=== PATIENT | female | born 1990 | race Caucasian/White ===

== ENCOUNTER → 2022-03-25 13:09 | Outpatient (BNVA) | payer MEDICARE, MEDICAID, SELFPAY | PROVIDERS: Visit Provider Physician Assistant | DX: Z11.0 Encounter for screening for intestinal infectious diseases (principal); E66.01 Morbid (severe) obesity due to excess calories; F17.210 Nicotine dependence, cigarettes, uncomplicated; Z68.43 Body mass index [BMI] 50.0-59.9, adult | CPT/HCPCS: 83013; 99202; 99211 ==

== ENCOUNTER 2022-03-25 17:55 | Outpatient (REF) | payer MEDICARE, MEDICAID, SELFPAY ==
[2022-03-26 15:23] LABS: H Pylori Breath Test Negative (Negative)
== END 2022-03-25 17:56 | disposition home or self-care (01) ==
LOC: HO.LNP 17:55
PROVIDERS: Visit Provider Physician Assistant
DX: Z13.89 Encounter for screening for other disorder (principal)
CPT/HCPCS: 83013

== ENCOUNTER 2022-04-04 14:32 | Outpatient (REF) | payer MEDICARE, MEDICAID, SELFPAY ==
--- NOTE | ~2022-04-04 | XR_ITS ---
EXAMINATION: XR CHEST CLINICAL INFORMATION: Bariatric service evaluation. E66.01. COMPARISON: None TECHNIQUE: 2 views of the chest were obtained. FINDINGS: The lungs are clear. No hyperinflation. The costophrenic sulci are well-defined. The heart is normal in size. The vascularity is normal. The hilar and mediastinal contours are unremarkable. There are mild degenerative changes thoracic spine. No acute bony abnormality. XR/XR chest 2V IMPRESSION: Unremarkable examination.
--- NOTE | 2022-04-04 14:46 | ECG_ITS ---
Test Reason : e66.1 Blood Pressure : / mmHG Vent. Rate : 082 BPM Atrial Rate : 082 BPM P-R Int : 144 ms QRS Dur : 088 ms QT Int : 368 ms P-R-T Axes : 046 051 025 degrees QTc Int : 429 ms Normal sinus rhythm Normal ECG No previous ECGs available Referred By: Ashly Rincon Electronically Signed By:PARAM PRATT
[2022-04-04 15:06] LABS: MANUAL DIFF FLAG NO
[2022-04-04 15:23] LABS: Basophils Percent Auto 0.4 % (0-2); Eosinophils Absolute Auto 0.1 X10*3/uL (0.0-0.4); Eosinophils Percent Auto 1.5 % (0-4); Hemoglobin 13.8 g/dl (12.0-16.0); Imm Gran Abs Auto 0.05 X10*3/uL (0.00-0.03); Imm Gran Pct Auto 0.5 % (0.0-0.4); Lymphocytes Absolute Auto 1.9 X10*3/uL (1.2-4.9); Lymphocytes Percent Auto 21.1 % (20-40); Mean Corpuscular HGB Conc 32.9 g/dl (31.0-35.0); Mean Corpuscular Hemoglobin 27.9 pg (27.0-33.0); Mean Platelet Volume 9.4 fL (9.4-12.3); Monocytes Absolute Auto 0.8 X10*3/uL (0.1-1.2); Monocytes Percent Auto 8.3 % (2-11); Neutrophils Absolute Auto 6.2 x10*3/uL (2.0-8.3); Neutrophils Percent Auto 68.2 % (45-73); Platelet Count 350 X10*3/uL (160-400); Red Blood Count 4.94 X10*6/uL (4.20-5.50); Red Cell Distribution Width 14.4 % (11.0-16.0); White Blood Count 9.1 X10*3/uL (4.8-10.8)
[2022-04-04 15:37] LABS: Estimated Average Glucose 108 mg/dL; Hemoglobin A1c % 5.4 %
[2022-04-04 16:16] LABS: Alanine Aminotransferase 35 U/L (0-31); Albumin Level 4.5 g/dL (3.5-5.0); Alkaline Phosphatase 111 U/L (39-117); Anion Gap 12 (12-20); Aspartate Amino Transferase 28 U/L (5-31); Bilirubin Total 0.4 mg/dL (0.0-1.0); Blood Urea Nitrogen 11 mg/dL (9-16); C Reactive Protein 0.58 mg/dL (< or = 0.50); Calcium 9.7 mg/dL (8.4-10.2); Carbon Dioxide 25 mmol/L (22-29); Chloride 106 mmol/L (96-108); Cholesterol 125 mg/dL; Estimated Glomerular Filt Rate > 60; Ferritin 31 ng/mL (10-122); Glucose Random 89 mg/dL (60-115); HDL Cholesterol 34 mg/dL; Insulin 21 uU/mL (2-29); Iron 27 mcg/dL (30-160); LDL Cholesterol Calculated 75 mg/dl; Percent Iron Saturation 8 % (15-50); Potassium 4.5 mmol/L (3.3-5.1); Sodium 138 mmol/L (135-145); TSH reflex Free T4 1.18 uIU/mL (0.32-4.0); Total Iron Binding Capacity 334 mcg/dL (228-428); Total Protein 6.8 g/dL (6.5-8.0); Triglycerides 83 mg/dL; Unsaturated Iron Binding 307 ug/dL; Vitamin D 25-OH Total 24.8 ng/mL (>30)
[2022-04-04 16:29] LABS: Folate 12.4 ng/mL (> or = 4.0); Vitamin B12 729 pg/mL (200-900)
[2022-04-08 11:54] LABS: Calcium (PTHI) 9.7 mg/dL (8.6-10.2); PTHI 53 pg/mL (16-77)
[2022-04-09 17:53] LABS: Zinc 75 mcg/dL (60-130)
[2022-04-10 14:24] LABS: Vitamin A 41 mcg/dL (38-98)
[2022-04-13 10:03] LABS: Vitamin B1 10 nmol/L (8-30)
== END 2022-04-04 14:33 | disposition home or self-care (01) ==
LOC: HO.LAB 14:32
PROVIDERS: Visit Provider Physician Assistant
DX: Z01.818 Encounter for other preprocedural examination (principal); E66.01 Morbid (severe) obesity due to excess calories
CPT/HCPCS: 36415; 71046; 80053; 80061; 82306; 82607; 82728; 82746; 83036; 83525; 83540; 83970; 84425; 84443; 84590; 84630; 85025; 86140; 93005

== ENCOUNTER → 2022-04-18 13:00 | Outpatient (BNVA) | payer MEDICARE, MEDICAID, SELFPAY | PROVIDERS: Visit Provider Physician Assistant | DX: E66.01 Morbid (severe) obesity due to excess calories (principal); Z68.43 Body mass index [BMI] 50.0-59.9, adult | CPT/HCPCS: Q3014 ==

== ENCOUNTER → 2022-04-19 13:44 | Outpatient (BNVA) | payer MEDICARE, MEDICAID, SELFPAY | PROVIDERS: Visit Provider Dietitian, Registered | DX: E66.01 Morbid (severe) obesity due to excess calories (principal) | CPT/HCPCS: 97802 ==

== ENCOUNTER → 2022-04-23 13:00 | Outpatient (BNVA) | payer MEDICARE, MEDICAID, SELFPAY | PROVIDERS: Visit Provider Counselor Mental Health | DX: F50.81 Binge eating disorder (principal); E66.01 Morbid (severe) obesity due to excess calories | CPT/HCPCS: 90791 ==

== ENCOUNTER → 2022-05-09 13:29 | Outpatient (BNVA) | payer MEDICARE, MEDICAID, SELFPAY | PROVIDERS: Visit Provider Dietitian, Registered | DX: E66.01 Morbid (severe) obesity due to excess calories (principal); Z68.43 Body mass index [BMI] 50.0-59.9, adult | CPT/HCPCS: 97803 ==

== ENCOUNTER → 2022-05-10 12:30 | Outpatient (BNVA) | payer MEDICARE, MEDICAID, SELFPAY | PROVIDERS: Visit Provider Physician Assistant | DX: E66.01 Morbid (severe) obesity due to excess calories (principal); F17.210 Nicotine dependence, cigarettes, uncomplicated; Z68.43 Body mass index [BMI] 50.0-59.9, adult | CPT/HCPCS: Q3014 ==

== ENCOUNTER 2022-05-14 08:26 | Outpatient (REF) | payer MEDICARE, MEDICAID, SELFPAY ==
--- NOTE | ~2022-05-14 | US_ITS ---
EXAMINATION: US COMPLETE ABDOMEN WITH LIVER ELASTOGRAPHY CLINICAL INFORMATION: Obesity. COMPARISON: None. TECHNIQUE: Real-time imaging of the abdominal viscera. Noninvasive ultrasound liver fibrosis assessment is performed using Margaret ElastPQ point quantification shear wave elastography (2D-SWE) with a C5-2 MHz transducer. Multiple elastography samples are obtained. FINDINGS: PANCREAS: Normal. The visualized pancreatic head and body are normal in appearance. The remainder of the pancreas is obscured from visualization by the overlying bowel gas. ABDOMINAL AORTA: The proximal, middle, and distal aortic segments are normal in caliber. INFERIOR VENA CAVA: Visualized portions are normal. LIVER: Normal. The liver demonstrates normal size, contour and mildly diminished echogenicity, with a 4.8 x 3.3 x 3.1 cm focus of pericholecystic sparing. No focal lesion or intrahepatic biliary duct dilatation. The right lobe measures 14.2 cm in length. The left lobe measures 12.0 cm in length. Portal flow is towards the liver (hepatopetal). Shear wave liver elastography median stiffness is 1.12 m/s (reference: normal median stiffness is 1.3 m/s or less). IQR/median stiffness to assess sampling precision is 0.13 (reference: good quality data set is IQR/median stiffness of 0.15 or less). GALLBLADDER: Normal. The gallbladder is physiologically distended without evidence of stones, sludge, polyps, wall thickening or pericholecystic fluid. COMMON BILE DUCT: Normal in caliber measuring 0.4 cm in diameter. RIGHT KIDNEY: At the upper pole, a 1.0 cm in maximal diameter anechoic, simple cyst is seen.. No hydronephrosis. No renal calculi or focal parenchymal lesions. The kidney measures 12.4 cm in maximum dimension. LEFT KIDNEY: Normal. No hydronephrosis. No renal calculi or focal parenchymal lesions. The kidney measures 13.1 cm in maximum dimension. SPLEEN: Normal. The spleen measures 11.8 cm in maximum dimension. FREE FLUID: None. US/US abdomen comp w elastography IMPRESSION: 1. There is mild generalized increase in hepatic echotexture, consistent with fatty infiltration or hepatocellular disease. Please correlate clinically. Characteristic pericholecystic sparing favors fatty infiltration. No focal hepatic mass or intrahepatic biliary dilatation is seen. 2. Liver elastography: Measurements are consistent with a high probability of normal liver stiffness. 3. A 1.0 cm benign, simple right renal cyst is seen, for which no imaging follow-up is recommended. REFERENCE: Society of Radiologists in Ultrasound Liver Stiffness Thresholds (2020): LIVER STIFFNESS THRESHOLDS: *Liver Stiffness equal or less than 1.3 m/s: High probability of being normal. *Liver Stiffness less than 1.7 m/s: In the absence of other known clinical signs, rules out compensated advanced chronic liver disease. *Liver Stiffness 1.7-2.1 m/s: Suggestive of compensated advanced chronic liver disease but need further test for confirmation. *Liver Stiffness over 2.1 m/s: Rules in compensated advanced chronic liver disease. *Liver Stiffness over 2.4 m/s: Suggestive of clinically significant portal hypertension. QUALITY OF DATA SET: *IQR/Median value equal or less than 0.15 implies a quality data set. *IQR/Median value over 0.15 implies a poor quality data set. SIGNIFICANT CHANGE FROM PRIOR EXAM: Significant change if liver stiffness measurement is 10% or greater from prior exam. OTHER CONSIDERATIONS: The stage of liver fibrosis may be overestimated in the setting of acute hepatitis, liver inflammation, elevated liver function tests, hepatic vascular congestion, obstructive cholestasis, non-fasting state, and infiltrative diseases such as amyloidosis and lymphoma. In some patients with NAFLD, the liver stiffness thresholds for compensated advanced chronic liver disease may be lower. In causes other than viral hepatitis and NAFLD, liver stiffness thresholds are not well established.
--- NOTE | ~2022-05-14 | FL_ITS ---
EXAMINATION: XR FLUOROSCOPY UPPER GI WITH AIR CLINICAL INFORMATION: Morbid obesity due to excess calories. COMPARISON: None TECHNIQUE: Fluoroscopic assessment of the upper GI tract was performed in various upright and supine/prone obliquities utilizing thin and thick high density barium contrast material and effervescent granules. FINDINGS: The esophagus was normal in course, caliber, and contour. There was normal distensibility with no fixed segment of narrowing. No focal mucosal abnormality was identified. No significant esophageal dysmotility was observed. Contrast passed freely across the gastroesophageal junction into the stomach. No significant hiatal hernia. There was normal distensibility of the stomach with no focal abnormality identified. There was prompt gastric emptying into the duodenum which demonstrated a normal appearance. Mild to moderate gastroesophageal reflux was observed. FLUOROSCOPY TIME: 1.3 minutes DOSE AREA PRODUCT: 29.421 Gy-cm2 (nguyen-centimeter squared) FL/FL upper GI w air IMPRESSION: Mild to moderate gastroesophageal reflux noted. Otherwise unremarkable upper GI examination.
== END 2022-05-14 08:27 | disposition home or self-care (01) ==
LOC: HO.US 08:26
PROVIDERS: Visit Provider Physician Assistant
DX: Z01.818 Encounter for other preprocedural examination (principal); E66.01 Morbid (severe) obesity due to excess calories
CPT/HCPCS: 74246; 76705; 76981

== ENCOUNTER → 2022-05-23 13:39 | Outpatient (BNVA) | payer MEDICARE, MEDICAID, SELFPAY | PROVIDERS: Visit Provider Physician Assistant | DX: E66.01 Morbid (severe) obesity due to excess calories (principal); F17.210 Nicotine dependence, cigarettes, uncomplicated; Z68.43 Body mass index [BMI] 50.0-59.9, adult | CPT/HCPCS: Q3014 ==

== ENCOUNTER → 2022-06-07 13:07 | Outpatient (BNVA) | payer MEDICARE, MEDICAID, SELFPAY | PROVIDERS: Visit Provider Dietitian, Registered | DX: E66.01 Morbid (severe) obesity due to excess calories (principal); Z71.3 Dietary counseling and surveillance | CPT/HCPCS: 97803 ==

== ENCOUNTER → 2022-06-21 12:29 | Outpatient (BNVA) | payer MEDICARE, MEDICAID, SELFPAY | PROVIDERS: Visit Provider Physician Assistant | DX: E66.01 Morbid (severe) obesity due to excess calories (principal); F17.210 Nicotine dependence, cigarettes, uncomplicated; Z68.42 Body mass index [BMI] 45.0-49.9, adult | CPT/HCPCS: Q3014 ==

== ENCOUNTER → 2022-07-01 13:30 | Outpatient (BNVA) | payer MEDICARE, MEDICAID, SELFPAY | PROVIDERS: Visit Provider Surgery | DX: Z01.818 Encounter for other preprocedural examination (principal); E66.01 Morbid (severe) obesity due to excess calories; F50.81 Binge eating disorder; F17.210 Nicotine dependence, cigarettes, uncomplicated | CPT/HCPCS: 99212 ==

== ENCOUNTER → 2022-07-05 13:03 | Outpatient (BNVA) | payer MEDICARE, MEDICAID, SELFPAY | PROVIDERS: Visit Provider Surgery ==

== ENCOUNTER → 2022-07-10 09:30 | Outpatient (BNVA) | payer MEDICARE, MEDICAID, SELFPAY | PROVIDERS: Visit Provider Physician Assistant | DX: E66.01 Morbid (severe) obesity due to excess calories (principal); F50.81 Binge eating disorder; Z68.42 Body mass index [BMI] 45.0-49.9, adult | CPT/HCPCS: Q3014 ==

== ENCOUNTER → 2022-07-16 14:59 | Outpatient (BNVA) | payer MEDICARE, MEDICAID, SELFPAY | PROVIDERS: Visit Provider Counselor Mental Health ==

== ENCOUNTER → 2022-07-18 13:42 | Outpatient (BNVA) | payer MEDICARE, MEDICAID, SELFPAY | PROVIDERS: Visit Provider Physician Assistant | DX: E66.01 Morbid (severe) obesity due to excess calories (principal); F50.81 Binge eating disorder; Z68.42 Body mass index [BMI] 45.0-49.9, adult; F17.210 Nicotine dependence, cigarettes, uncomplicated | CPT/HCPCS: 99212 ==

== ENCOUNTER 2022-07-24 08:54 | Inpatient (IN) | payer MEDICARE, MEDICAID, SELFPAY ==
[2022-07-05 13:04] LABS: MANUAL DIFF FLAG NO
[2022-07-05 14:03] LABS: Basophils Percent Auto 0.4 % (0-2); Eosinophils Absolute Auto 0.2 X10*3/uL (0.0-0.4); Eosinophils Percent Auto 2.3 % (0-4); Hematocrit 40.9 % (37.0-47.0); Hemoglobin 13.4 g/dl (12.0-16.0); Imm Gran Abs Auto 0.03 X10*3/uL (0.00-0.03); Imm Gran Pct Auto 0.4 % (0.0-0.4); Lymphocytes Absolute Auto 1.6 X10*3/uL (1.2-4.9); Lymphocytes Percent Auto 18.9 % (20-40); Mean Corpuscular HGB Conc 32.8 g/dl (31.0-35.0); Mean Corpuscular Volume 82.5 fL (80.0-98.0); Mean Platelet Volume 9.6 fL (9.4-12.3); Monocytes Absolute Auto 0.6 X10*3/uL (0.1-1.2); Monocytes Percent Auto 7.6 % (2-11); Neutrophils Absolute Auto 5.8 x10*3/uL (2.0-8.3); Neutrophils Percent Auto 70.4 % (45-73); Platelet Count 323 X10*3/uL (160-400); Red Blood Count 4.96 X10*6/uL (4.20-5.50); White Blood Count 8.2 X10*3/uL (4.8-10.8)
[2022-07-05 14:11] LABS: INTERNATIONAL NORM RATIO 1.1 (0.9-1.1); Prothrombin Time 12.6 SEC (10.0-13.1)
[2022-07-05 14:13] LABS: Partial Thromboplastin Time 33.9 SEC (26.0-36.4)
[2022-07-05 14:15] LABS: Estimated Average Glucose 108 mg/dL; Hemoglobin A1c % 5.4 %
[2022-07-05 14:20] LABS: Alanine Aminotransferase 26 U/L (0-31); Albumin Level 4.3 g/dL (3.5-5.0); Alkaline Phosphatase 118 U/L (39-117); Anion Gap 15 (12-20); Aspartate Amino Transferase 21 U/L (5-31); Bilirubin Total 0.8 mg/dL (0.0-1.0); Blood Urea Nitrogen 11 mg/dL (9-16); C Reactive Protein 1.53 mg/dL (< or = 0.50); Calcium 9.4 mg/dL (8.4-10.2); Carbon Dioxide 23 mmol/L (22-29); Chloride 106 mmol/L (96-108); Cholesterol 122 mg/dL; Estimated Glomerular Filt Rate > 60; Glucose Random 84 mg/dL (60-115); HDL Cholesterol 32 mg/dL; Iron 46 mcg/dL (30-160); LDL Cholesterol Calculated 76 mg/dl; Percent Iron Saturation 15 % (15-50); Potassium 4.5 mmol/L (3.3-5.1); Sodium 139 mmol/L (135-145); Total Iron Binding Capacity 299 mcg/dL (228-428); Total Protein 6.7 g/dL (6.5-8.0); Triglycerides 74 mg/dL; Unsaturated Iron Binding 253 ug/dL
[2022-07-05 14:43] LABS: Ferritin 66 ng/mL (10-122); TSH reflex Free T4 1.02 uIU/mL (0.32-4.0); Vitamin B12 689 pg/mL (200-900); Vitamin D 25-OH Total 32.6 ng/mL (>30)
[2022-07-08 14:04] LABS: Calcium (PTHI) 9.7 mg/dL (8.6-10.2); PTHI 42 pg/mL (16-77)
[2022-07-09 17:34] LABS: Zinc 78 mcg/dL (60-130)
[2022-07-11 06:04] LABS: Vitamin A 33 mcg/dL (38-98)
[2022-07-11 15:34] LABS: Vitamin B1 10 nmol/L (8-30)
[2022-07-12 23:00] LABS: Cotinine, U <2 ng/mL; Nicotine, U <2 ng/mL
[2022-07-15 14:31] VITALS: BMI 45.8
[2022-07-23 13:49] LABS: COVID-19 Test Negative (Negative); IDNOW Serial# 08D9AD1C
[2022-07-24] VITALS (12 sets, daily range): BP systolic 109–156; BP diastolic 50–92; PULSE 65–82; RESP 16–20; TEMP 36.1–37.1; O2SAT 96–100
[2022-07-24] MEDS: Scopolamine 1.5 MG PATCH.TD.3 TRANSDERMA (09:14)
[2022-07-24 09:16] LABS: UPreg QC Valid YES; Urine Pregnancy NEGATIVE (NEGATIVE)
[2022-07-24] MEDS: Lactated Ringers 1,000 ML 150 ML IVCONT (09:36)
--- NOTE | 2022-07-24 09:46 | HO.ANESPROP2 ---
HPI - Anesthesia Eval Consult details Narrative: 32 yo female patient for EGD, Laparoscopic sleeve gastrectomy, possible diaphragmatic hernia repair, possible ventral hernia repair, possible open PMFSH Active Problems Active Problems: All Active Problems (Updated 07/24/22 @09:44 by Jo Solorzano MD ) Morbid obesity BMI 45.9 Pre-op evaluation (Acute) Cigarette smoker - quit 06/19/2022 Binge-eating disorder, in partial remission, mild (Acute) Denies GORDY Past Medical History Medical History Binge-eating disorder, in partial remission, mild Cigarette smoker Depression Family history of anesthesia complication Fuchs' corneal dystrophy of both eyes Family History Family History Mother No problems noted. Father Heart failure Hypertension High cholesterol Heart attack Brother No problems noted. Family history of problems with anesthesia: No Surgical History Surgical History Hx of cornea transplant History of Problems with Anesthesia: No Social History Social History (Updated 07/24/22 @ 11:18 by Jo Solorzano MD) Household Members Other:: father Are you a primary palliative care specialist to a significant other at home: No Do you presently have visiting nurse or other home services: No Alcohol intake: current Alcohol intake frequency: holidays/special occasions only Patient Tobacco Use Status: Former Tobacco user Quit Date: 06/19/22 Tobacco use type: Cigarette Cigarette Packs Per Day: 0.5 Years Smoked: 20 Substance Use Type: Marijuana Meds Allergies Allergy/AdvReac Type Severity Reaction Status Date / Time No Known Allergies Allergy Mild NONE Verified 07/18/22 13:45 Active Medications: Current Medications Lactated Ringer's (Lr) 1,000 mls @ 150 mls/hr IVCONT .[id number] GILDARDO Last Admin: 07/24/22 09:36 Dose: 150 mls/hr Home Medications Medication Instructions Recorded Confirmed Last Taken Type spironolactone 25 mg tablet 5 mg PO DAILY 03/08/22 06/21/22 Unknown History Exam Exam Date and Time: July 24, 2022 0946 Height,Weight and Vital Signs: Height 5 ft 3 in Weight 117.48 kg Last Vital Signs Temp 96.9 F 07/24/22 09:11 Pulse 74 07/24/22 09:11 Resp 16 07/24/22 09:11 BP 153/80 H 07/24/22 09:11 Pulse Ox 98 07/24/22 09:11 O2 Del Method Room Air 07/24/22 09:11 Pertinent Lab Results Pertinent Lab Results: Laboratory Tests 07/05/22 07/05/22 07/05/22 12:48 13:02 13:02 WBC 8.2 RBC 4.96 Hgb 13.4 Hct 40.9 MCV 82.5 MCH 27.0 MCHC 32.8 RDW 14.0 Plt Count 323 MPV 9.6 Immature Gran % (Auto) 0.4 Neut % (Auto) 70.4 Lymph % (Auto) 18.9 L [place] % (Auto) 7.6 Eos % (Auto) 2.3 Baso % (Auto) 0.4 Lymph # (Auto) 1.6 [place] # (Auto) 0.6 Eos # (Auto) 0.2 Baso # (Auto) 0.0 Abs Immat Gran (auto) 0.03 Absolute Neuts (auto) 5.8 Absolute Nucleated RBC 0.000 Nucleated RBC % (auto) 0.0 PT 12.6 INR 1.1 APTT 33.9 Sodium Potassium Chloride Carbon Dioxide Anion Gap BUN Creatinine Estim Creat Clear Calc Estimated GFR Random Glucose Estimat Average Glucose Hemoglobin A1c % Calcium Iron TIBC % Saturation Unsat Iron Binding Ferritin Total Bilirubin AST ALT Alkaline Phosphatase C-Reactive Protein Total Protein Albumin Triglycerides Cholesterol LDL Cholesterol, Calc HDL Cholesterol Vitamin A Vitamin B1 Vitamin B12 25-OH Vitamin D Total TSH PTH Intact Calcium (PTH Intact) Urine Cotinine Urine Test Urine Nicotine Zinc COVID-19 (CRUZ) COVID-19 Clin Com Blood Type O Negative Antibody Screen Cancelled 07/05/22 07/05/22 07/05/22 13:02 13:02 13:02 WBC RBC Hgb Hct MCV MCH MCHC RDW Plt Count MPV Immature Gran % (Auto) Neut % (Auto) Lymph % (Auto) [place] % (Auto) Eos % (Auto) Baso % (Auto) Lymph # (Auto) [place] # (Auto) Eos # (Auto) Baso # (Auto) Abs Immat Gran (auto) Absolute Neuts (auto) Absolute Nucleated RBC Nucleated RBC % (auto) PT INR APTT Sodium 139 Potassium 4.5 Chloride 106 Carbon Dioxide 23 Anion Gap 15 BUN 11 Creatinine 0.68 Estim Creat Clear Calc TNP Estimated GFR > 60 Random Glucose 84 Estimat Average Glucose 108 Hemoglobin A1c % 5.4 Calcium 9.4 Iron 46 TIBC 299 % Saturation 15 Unsat Iron Binding 253 Ferritin 66 Total Bilirubin 0.8 AST 21 ALT 26 Alkaline Phosphatase 118 H C-Reactive Protein 1.53 H Total Protein 6.7 Albumin 4.3 Triglycerides 74 Cholesterol 122 LDL Cholesterol, Calc 76 HDL Cholesterol 32 Vitamin A 33 L Vitamin B1 10 Vitamin B12 689 25-OH Vitamin D Total 32.6 TSH 1.02 PTH Intact Calcium (PTH Intact) Urine Cotinine Urine Test Urine Nicotine Zinc COVID-19 (CRUZ) [employer] Blood Type Antibody Screen 07/05/22 07/05/22 07/05/22 13:02 13:02 15:28 WBC RBC Hgb Hct MCV MCH MCHC RDW Plt Count MPV Immature Gran % (Auto) Neut % (Auto) Lymph % (Auto) [place] % (Auto) Eos % (Auto) Baso % (Auto) Lymph # (Auto) [place] # (Auto) Eos # (Auto) Baso # (Auto) Abs Immat Gran (auto) Absolute Neuts (auto) Absolute Nucleated RBC Nucleated RBC % (auto) PT INR APTT Sodium Potassium Chloride Carbon Dioxide Anion Gap BUN Creatinine Estim Creat Clear Calc Estimated GFR Random Glucose Estimat Average Glucose Hemoglobin A1c % Calcium Iron TIBC % Saturation Unsat Iron Binding Ferritin Total Bilirubin AST ALT Alkaline Phosphatase C-Reactive Protein Total Protein Albumin Triglycerides Cholesterol LDL Cholesterol, Calc HDL Cholesterol Vitamin A Vitamin B1 Vitamin B12 25-OH Vitamin D Total TSH PTH Intact 42 Calcium (PTH Intact) 9.7 Urine Cotinine <2 Urine Test Urine Nicotine <2 Zinc 78 COVID-19 (CRUZ) COVIDAorTx Blood Type Antibody Screen 07/23/22 07/24/22 13:14 08:55 WBC RBC Hgb Hct MCV MCH MCHC RDW Plt Count MPV Immature Gran % (Auto) Neut % (Auto) Lymph % (Auto) [place] % (Auto) Eos % (Auto) Baso % (Auto) Lymph # (Auto) [place] # (Auto) Eos # (Auto) Baso # (Auto) Abs Immat Gran (auto) Absolute Neuts (auto) Absolute Nucleated RBC Nucleated RBC % (auto) PT INR APTT Sodium Potassium Chloride Carbon Dioxide Anion Gap BUN Creatinine Estim Creat Clear Calc Estimated GFR Random Glucose Estimat Average Glucose Hemoglobin A1c % Calcium Iron TIBC % Saturation Unsat Iron Binding Ferritin Total Bilirubin AST ALT Alkaline Phosphatase C-Reactive Protein Total Protein Albumin Triglycerides Cholesterol LDL Cholesterol, Calc HDL Cholesterol Vitamin A Vitamin B1 Vitamin B12 25-OH Vitamin D Total TSH PTH Intact Calcium (PTH Intact) Urine Cotinine Urine Test NEGATIVE Urine Nicotine Zinc COVID-19 (CRUZ) Negative COVID-19 Clin Com See Note Blood Type Antibody Screen Airway Mallampati Class: III TM Dist: >3cm Neck ROM: Full Loose/Missing/Broken Teeth: No (Denies broken, loose, missing teeth) Heart: RRR Lungs: CTAB Assessment and Plan Assessment Anesthesia Assessment: Anesthesia Plan Discussed and Chart Reviewed Final Anesthetic Review Family History of Problems with Anesthesia: No History of Problems with Anesthesia: No NPO: Yes ASA Class: III Final Preanesthetic Review: No Changes in Pt Med Stat, Meds/Allgs Chart Reviewed, Consent Obtained/Reviewed and Anes Risks/Benef Reviewed Patient Risk: Intermediate Procedure Risk: Intermediate Assessment/Block/Sedation in SS: Assess/Block/Sedation-SS Anesthetic Plan Anesthetic Plan: GA Disposition: Standard PACU and Inp. Admit - Standard Bed
--- NOTE | 2022-07-24 09:56 | MHC.SHP ---
Pre-Procedural Eval Section A Date of Service: 07/24/22 The patient is an INPATIENT: Yes The History & Physical has been completed within 30 days and I have reviewed it.: Yes Section B Chief Complaint: Obesity s/p sleeve gastrectomy Allergies: Allergies Allergy/AdvReac Type Severity Reaction Status Date / Time No Known Allergies Allergy Mild NONE Verified 07/18/22 13:45 Plan I have reviewed the history and physical and performed a pertinent physical examination on my patient. No changes have occurred unless specified. Time Spent With Patient Time: Total time managing care of this patient today ____ minutes.
--- NOTE | 2022-07-24 09:57 | PCN2_ITS ---
Brief Operative Note Date of procedure: 07/24/22 Procedure: Preop diagnosis: [Morbid obesity] Postop diagnosis: [same, hepatomegaly] Procedure: [Laparoscopic sleeve gastrectomy, gastropexy, intraoperative upper endoscopy] Surgeon: Ahmet Tierney MD Assist: [Pina Bansal PA-C] Anesthesia: [GET, Marcainie, 0.5%] Estimated blood loss: [10 cc] Specimen: [Portion of stomach with fundus] Intraoperative findings: [Liver was enlarged; the round ligament of the liver was isolated with no adhesions to the peritoneal surface from the level of the umbilicus into the liver. This was left as found. The operative field had a diffuse, nonspecific ooze.] Indications: [The patient is a 32-year-old woman with morbid obesity refractory to medical management. She entered the surgical weight loss program with a weight of 305/BMI 54.0?and was using nicotine at entry. Following medical workup, supportive counseling and demonstration of positive lifestyle changes with weight loss, the patient had the options of ongoing medical weight loss and counseling, or surgical weight loss including laparoscopic sleeve gastrectomy and laparoscopic gastric bypass again reviewed. The risks, benefits and alternatives seem to be understood by the patient and she wanted to proceed with a laparoscopic sleeve gastrectomy, gastropexy and intraoperative endoscopy. The possible need for a hiatal hernia or other hernia repair was also reviewed. I reviewed the inherent risks of this procedure which include, but are not limited to: Bleeding that could require another operation or blood transfusion; the inherent risks of transfusion reaction infectious disease from blood transfusions; the risk of staple line leaks that could cause sepsis, multi- system organ failure and ; the risk of mesenteric or deep vein thrombosis of the lower extremities that could cause a fatal pulmonary embolism was reviewed; the risk of GERD that could require conversion to gastric bypass was discussed; the risk of recurrent hiatal hernia, especially in the setting of weight regain was reviewed. The risk of weight regain if maladaptive eating and sedentary behavior continue was discussed. The importance of proper diet and increased activity to augment surgical weight loss and the fact that no operation would result in weight loss of poor dietary decisions and sedentary behavior are resumed were discussed at length and apparently understood. The patient seemed understand her options and wanted to proceed with surgical weight loss.] Procedure: [The patient was identified in the preoperative holding area by myself and again in the operating suite by myself and the OR team. Patient was placed supine on the operating table. Safety straps were utilized and a footboard utilized. The patient was induced in general endotracheal anesthesia administered with excellent effect. An appropriate time-out was performed. The patient's abdomen was then widely prepped and draped in the usual manner for surgery using chlorprep. Antibiotics per protocol were administered by Anesthesia. After infiltrating preemptive local in the skin and subcutaneous tissues in the left upper quadrant, a stab incision was made sharply in the left subcostal abdomen and the Veress needle inserted without incident. An appropriate drop test was performed then a pneumoperitoneum of 15 mmHg was obtained using carbon dioxide. Opening pressures were __ mmHg. Next, a 5 mm 0 degree scope over a 5 mm Optiview trocar was used to access the abdomen via the epigastric incision in the midline. Once the abdomen was entered, the the trocar obturator was removed and the laparoscope was used to confirm there was no injury from the Veress needle nor trocar insertion injury to the bowel or mesentery, then the scope was switched to a 5 mm 45 degree laparoscope. Next, using preemptive local, additional 5 mm trocars were placed under direct laparoscopic vision on the patient's left abdomen, then right and the 5 mm midline trocar upsized to a 12 mm to accommodate the stapler. The patient was then positioned in reverse Trendelenburg and the liver retractor deployed through the right lateral 5 mm trocar and secured. A 40 [place] ViSiGi bougie was inserted by Anesthesia per os and advanced to the stomach to decompress. It was then withdrawn to the GE junction all under direct laparoscopic vision. Dissection was begun along the greater curvature using the 5 mm [place] LigaSure for hemostasis and continued to the left gina of the diaphragm. Dissection was then carried towards the pylorus to 3-4 cm from the pylorus and retro gastric adhesions lysed. The gastroesophageal fat pad was carefully mobilized taking care to avoid injury to the esophagus and stomach and dissection carried towards the short gastrics taking care to avoid injury to the spleen and splenic artery. The diaphragmatic hiatus was carefully examined for a hernia, and no apparent hernia was appreciated. Next, the 40 Fr ViSiGi bougie was advanced by anesthesia under direct vision and laparoscopic guidance and positioned in the antrum approximately 3 cm from the pylorus using laparoscopic graspers to serve as a guide for a stapled sleeve gastrectomy. Stapling was performed with [employer] stapler with a purple 45 and then orange 45 and 60 loads. The bougie served as a guide to maintain the same sleeve caliber to avoid stricture & sleeve distortion. The 10 mm clip forest landscape ecology professor was used to apply additional clips to the staple line. Care was taken to be sure that the sleeve laid flat and was without stricture. Once the sleeve was complete, the portion of stomach was placed in the lower abdomen to be sent for removal and permanent section. The staple line, gastrocolic omentum, spleen and short gastric areas were all inspected for hemostasis which was found to be good. Next, the bougie was withdrawn under laparoscopic vision used to suction the esophagus and hypopharynx and then discarded. After inspecting again for hemostasis, a gastropexy was performed using 2-0 Polysorb suture to secure the sleeve gastrectomy to the gastrocolic omentum. Next, I broke scrub perform an on-table upper endoscopy to assess the sleeve and the esophagus and stomach. The patient was returned to neutral position and the Olympus 160 gastroscope was advanced taking care to preserve the endotracheal tube. The esophagus was intubated without incident. Minimal air was insufflated and the scope advanced into the newly formed sleeve. The staple line was inspected for hemostasis and the morphology of the sleeve appeared straight with a uniform diameter. Intraoperatively, there was no evidence of staple line leak seen during laparoscopy as air was insufflated via endoscope. The scope was then used to aspirate the air from the sleeve withdrawn and removed. I then rescrubbed to return to the operative field and again inspected the field for hemostasis. After final assessment for hemostasis, the patient was returned to neutral position, a Soraya used to withdraw the resected gastric specimen which was sent for permanent section. The fascia of the 12 mm midline was closed using an 0 Polysorb figure of 8 on a suture passer under direct laparoscopic vision. The abdomen was then deflated and all trocars removed. The suture was then tied and the skin closed with 4-0 Monocryl subcuticular sutures. The abdomen was then washed and dried, benzoin and Steri-Strips applied followed by Tegaderms. The patient tolerated the procedure well was then extubated the recover in stable condition. All sponge needle and instrument counts were correct x2. At the patient's request, I contacted her father and [phone] by telephone and apprised him of the operation and typical postoperative/perioperative plan. His questions seemed to be satisfactorily answered. The patient's father requested that he contact the patient's mother on my behalf to explain the procedure. Patient noted that her father may prefer to contact her mother preoperatively and that it was okay.]
--- NOTE | 2022-07-24 12:30 | P.DS_ITS ---
DS: Providers Provider Date of Service: 07/25/22 Date of admission: 07/24/22 08:54 Primary care physician: Unknown Physician DS: Summary Hospital Course Hospital Course: ADMITTING DIAGNOSIS: morbid obesity ? DISCHARGE DIAGNOSIS: same, s/p laparoscopic sleeve gastrectomy and gastropexy ? PAST SURGICAL HISTORY:?corneal transplant ? PROCEDURE: upper endoscopy, laparoscopic sleeve gastrectomy and gastropexy ? DISCHARGE SUMMARY: ? History of Present Illness: ? The patient is a? 32? year-old woman with a BMI of? ?45.9 ? kg/m2 and associated co-morbidities as described above. The patient had extensive work-up,lost? ?46 ? lbs preoperatively and was electively scheduled for laparoscopic, possible open sleeve gastrectomy and gastropexy. Risks and complications of the surgery were discussed with the patient in advance, particularly the possibility of , pulmonary embolism, anastomotic leak, bleeding, bowel injury, GERD, cardiac, tunde al or pulmonary complications. The patient understood all the risks and was in agreement with the surgical plan. ? Hospital Course: ? The patient underwent an uneventful laparoscopic sleeve gastrectomy with gastropexy on the day of admission. Postoperatively, the patient was transferred to the surgical floor. The patient received IV Acetaminophen and IV dilaudid for pain control. Patient was started on bariatric phase 1 diet POD #0. On postoperative day one, the patient was feeling well without nausea, vomiting, fevers, or tachycardia. The patient had some mild incisional pain and the abdomen was soft.? ? On the morning of postoperative day one, the patient was continued on 1 ounce of water or ice every half hour. During the day, the patient did fairly well, having some incisional pain, but able to ambulate adequately and to tolerate liquids well. ? Since the patient is doing well, we decided that the patient was ready to be discharged. The patient was given instructions to follow-up with me next week and to call my office for any fever over 101, persistent abdominal pain, nausea, vomiting, GERD, symptoms of DVT such as calf tenderness, or leg swelling, or pulmonary embolism such as chest pain or shortness of breath.? The patient was also instructed to drink 40-60 ounces of liquids per day using the 1-ounce cups. The patient had been given prescriptions for Tylenol for pain, Zofran prn for nausea, and pantoprazole and carafate previously. The patient was encouraged to ambulate and use the incentive spirometer. The patient was allowed to shower, but no baths, and encouraged to stay active at home. All of these instructions were given to the patient personally. All questions were answered and the patient understood all instructions, the instructions were also given to the patient in print. Time Spent with Patient Time attestation: Total time managing care of this patient today ____ minutes. Discharge coordination time: Less than 30 minutes Quality: Safe Use of Opioids Does Pt have an Active Cancer Diagnosis on the Problem List?: No Quality: Stroke Does the patient have a stroke diagnosis?: No Physical Exam Vital Signs: Vital Signs: Last Vital Signs Temp 96.9 F 07/24/22 09:11 Pulse 74 07/24/22 09:11 Resp 16 07/24/22 09:11 BP 153/80 H 07/24/22 09:11 Pulse Ox 98 07/24/22 09:11 O2 Del Method Room Air 07/24/22 09:11 BMI result Body Mass Index 45.8 DS: Data Data Completed and Pending Pending studies at discharge: Pending at discharge 07/24/22 11:48 Surgical [PTH] Routine Labs on day of discharge: Laboratory Results - last 24 hr 07/23/22 07/24/22 07/24/22 13:14 08:55 09:14 Urine Test NEGATIVE COVID-19 ([facility]) Negative COVID-19 Clin Com See Note Blood Type O Negative Antibody Screen NEGATIVE Discharge Plan Discharge Anticipated Discharge Date/Time: 07/25/22 10:00 Patient Disposition: Home, Self-Care Discharge Diagnosis: s/p laparoscopic sleeve gastrectomy Referrals: Physician,Unknown J [Primary Care Provider] - 1 Week Discharge Medications: Continued cholecalciferol (vitamin D3) 25 mcg (1,000 unit) capsule 25 mcg PO DAILY Qty: 30 5RF spironolactone 25 mg tablet 5 mg PO DAILY ondansetron HCl 4 mg tablet 4 mg PO Q6H PRN (Reason: nausea and vomiting) Qty: 20 0RF pantoprazole 40 mg tablet,delayed release (DR/EC) 40 mg PO QAM 30 Days Qty: 30 2RF acetaminophen 500 mg/15 mL liquid 500 mg PO Q6H PRN (Reason: fever or pain) Qty: 237 2RF Discharge Orders: Discharge Order (Routine); Ordered 07/25/22 Ordered By: Pina Bansal Activity on Discharge: No heavy lifting Stand Alone Forms: Patient Portal Discharge page Care Plan Goals: weight loss Health Concerns: morbid obesity Plan of Treatment: No tub baths, sex or returning to work until discussed at first post op appointment. No alcohol, tobacco or illegal drug use. Continue to use incentive spirometer hourly while awake. Walk in home for 5- 10 minutes every 2 hours during the first week. Wear abdominal binder with activity. Follow all meal plan instructions from your bariatric surgeon. Review bariatric handbook and call with any questions. Discharge Instructions 1. Please call your doctor or come back to the emergency room should any new symptoms arise. 2. Activity: abstain from alcohol,? limited stair climbing, no bending, no driving, no exercise, no illicit substances, no lifting, no sex, no tub bath, no work. 4. Diet: follow your bariatric surgeons recommendations for advancing diet. 5. Dressing Change/Wound Care: Your incisions are covered with waterproof dressings. You can shower with these and pat dry. Do not rub over dressings or incisions. If the area is tender, you may apply an ice pack for short intervals (no more than 20 minutes on, followed by at least 20 minutes off). Do not apply heat. Do not use creams, lotions, or topical antibiotics unless instructed to do so by your surgeon. 6. Call your doctor if: - Your temperature exceeds 101.5 F - You experience excessive pain or swelling - You have an unexpected reaction to medication - You have excessive bleeding - You experience continued vomiting/nausea - Your incision begins to separate - Your incision shows signs of infection such as increased redness, swelling, excessive pain, heat, or drainage (light blood or clear fluid is normal) General instructions: No lifting greater than 10 lbs for the next 6 weeks[address] driving within 24 hours of taking narcotic pain medications. If you do not move your bowels in the next 2 days, please take milk of magnesia over the counter. Please follow the post op diet and do not advance your diet until you are seen in the office in about 2 weeks. Please walk around your home every hour or two to prevent blood clots from forming in your legs. You do not need to wake from sleeping to walk. Please sleep in a bed or couch to prevent kinking at the hips and knees. Please take your incentive spirometer (your lung biotechnologist) home with you and use it for the next few days to prevent pneumonias. You may shower, no hot tubs, baths or swimming pools. Please call the office with any questions or concerns such as increasing abdominal pain, fever, chills, shortness of breath, chest pain, leg pain or swelling, or redness or drainage from your incisions. Please make sure you are consuming 40-60 ounces of total fluids per day. Avoid all carbonation. Do not hesitate to contact the office with any questions at . The patient's medical history has been reviewed and they are considered low risk for post op DVT and therefore DVT prophylaxis is not considered necessary. Travel after surgery was reviewed. The patient has not disclosed any travel plans during the first 30 da ys after surgery and they have been advised that within the first 30 days after surgery any bus, plane, train or car travel over 2 hours in duration is contraindicated due to the possibility of developing blood clots from immobility. Any travel, needs to include periods of ambulation of 10 minutes in duration every 2 hours.? The patient was instructed to discuss any plans for travel during this period with their bariatric surgeon. Assessment: s/p laparoscopic sleeve gastrectomy
[2022-07-24 13:17] LABS: Hematocrit 41.1 % (37.0-47.0); Hemoglobin 13.3 g/dl (12.0-16.0)
[2022-07-24] MEDS: Lactated Ringers 1,000 ML 100 ML IVCONT (13:28)
[2022-07-24 13:38] LABS: Anion Gap 19 (12-20); Blood Urea Nitrogen 8 mg/dL (9-16); Calcium 8.9 mg/dL (8.4-10.2); Carbon Dioxide 19 mmol/L (22-29); Chloride 107 mmol/L (96-108); Creatinine Clr Calc Pharmacy 133.3; Estimated Glomerular Filt Rate > 60; Glucose Random 114 mg/dL (60-115); Potassium 4.2 mmol/L (3.3-5.1); Sodium 141 mmol/L (135-145)
[2022-07-24] MEDS: cefoTEtan disodium 2 GM in 0.9 % Sodium Chloride 50 ML IV (15:45)
[2022-07-24] MEDS: Acetaminophen 1,000 MG/100 ML PIGGYBACK 16.7 MG IV ×2 (16:19→21:12)
--- NOTE | 2022-07-24 19:39 | PHA.MEDREC ---
MED REC COMPLETE, NO ISSUES Pharmacy Consult ? Medication Reconciliation Pharmacy has completed the medication reconciliation.
[2022-07-24] MEDS: Famotidine/PF 20 MG/2 ML VIAL IVPUSH (21:12)
[2022-07-24] MEDS: 0.9 % Sodium Chloride Flush 3 ML SYRINGE IVFLUSH (21:12)
[2022-07-24] MEDS: ondansetron HCL 4 MG/2 ML VIAL IVPUSH (23:04)
[2022-07-25] MEDS: Lactated Ringers 1,000 ML 100 ML IVCONT (03:04)
[2022-07-25] MEDS: Acetaminophen 1,000 MG/100 ML PIGGYBACK 16.7 MG IV (03:04)
[2022-07-25 03:46] VITALS: BP 146/66; PULSE 63; RESP 16; TEMP 36.8; O2SAT 98
[2022-07-25] MEDS: ondansetron HCL 4 MG/2 ML VIAL IVPUSH (06:10)
[2022-07-25 06:43] LABS: MANUAL DIFF FLAG NO
[2022-07-25 07:08] VITALS: BP 140/67; PULSE 66; RESP 18; TEMP 36.7; O2SAT 97
[2022-07-25] MEDS: Famotidine/PF 20 MG/2 ML VIAL IVPUSH (07:13)
--- NOTE | 2022-07-25 07:22 | P.PNGS_ITS ---
Subjective Subjective Date of Service: 07/25/22 Patient reports: no new complaints, feels better, still having pain and tolerating liquids well Interval history: The patient reports that she is doing well. She is tolerating water at the hydration goals. She otherwise denies dysphagia, odynophagia, regurgitation, chest pain, difficulty breathing or shortness of breath. Her pain is controlled and she has no significant nausea. Physical Exam Vital Signs: Vital Signs: Last Vital Signs Temp 98.1 F 07/25/22 07:08 Pulse 66 07/25/22 07:08 Resp 18 07/25/22 07:08 BP 140/67 H 07/25/22 07:08 Pulse Ox 97 07/25/22 07:08 O2 Del Method Room Air 07/25/22 07:08 O2 Flow Rate 2 07/24/22 14:00 BMI result Body Mass Index 45.8 On exam she is nontoxic She is in no acute respiratory distress Her abdominal binder is intact Objective Data Active Medications Famotidine (Famotidine/Pf 20 Mg/2 Ml Vial) 20 mg IVPUSH BID [facility] Last Admin: 07/24/22 21:12 Dose: 20 mg Documented By: TROY Hydromorphone HCl (Hydromorphone Hcl 0.5 Mg/0.5 Ml Syringe) 0.25 mg IVPUSH Q4H PRN; Protocol PRN Reason: Pain, Moderate (Pain Scale 4-6 Acetaminophen (Ofirmev) 1,000 mg in 100 mls @ 16.7 mls/hr IV .Q6H [facility] Last Admin: 07/25/22 03:04 Dose: 16.7 mls/hr Documented By: TROY Lactated Ringer's (Lr) 1,000 mls @ 100 mls/hr IVCONT .Q10H [facility] Last Admin: 07/25/22 03:04 Dose: 100 mls/hr Documented By: TROY Metoclopramide HCl (Metoclopramide Hcl 10 Mg/2 Ml Vial) 10 mg IVPUSH Q6H PRN PRN Reason: Nausea Ondansetron HCl (Ondansetron Hcl 4 Mg/2 Ml Vial) 4 mg IVPUSH Q8H [facility] Last Admin: 07/25/22 06:10 Dose: 4 mg Documented By: TROY Sodium Chloride (0.9 % Sodium Chloride Flush 3 Ml Syringe) 3 ml IVFLUSH QSHIFT GILDARDO Last Admin: 07/25/22 06:49 Dose: Not Given Documented By: MICHAEL Non-Admin Reason: IV Running Labs 07/24/22 13:10 07/24/22 13:10 Labs: Laboratory Results - last 24 hr 07/24/22 07/24/22 07/24/22 08:55 09:14 13:10 Anion Gap 19 Estim Creat Clear Calc 133.3 Estimated GFR > 60 Random Glucose 114 Calcium 8.9 Urine Test NEGATIVE Blood Type O Negative Antibody Screen NEGATIVE This morning's labs from 07/25/2022 are not available at this time Procedures Date of Service Date of Service: 07/25/22 Progress Note: A&P Assessment and plan (1) Status post sleeve gastrectomy: Status: Acute (2) Morbid obesity: Status: Acute Plan Await morning labs Continue p.o. hydration and ambulation. PA will be by to assess the patient and discharge the patient later this morning, assuming labs are within normal parameters. Time Spent With Patient Time: Total time managing care of this patient today ____ minutes. Quality Stroke Does the patient have a stroke diagnosis?: No VTE Prior VTE?: No VTE Risk Level:: Surgical - moderate VTE Device Contraindication: N/A - Device Ordered VTE Drug Contraindication: Treatment Not Indicated
[2022-07-25 07:52] LABS: Basophils Percent Auto 0.2 % (0-2); Hematocrit 37.7 % (37.0-47.0); Hemoglobin 12.4 g/dl (12.0-16.0); Imm Gran Abs Auto 0.06 X10*3/uL (0.00-0.03); Imm Gran Pct Auto 0.5 % (0.0-0.4); Lymphocytes Percent Auto 7.8 % (20-40); Mean Corpuscular HGB Conc 32.9 g/dl (31.0-35.0); Mean Corpuscular Hemoglobin 27.3 pg (27.0-33.0); Mean Corpuscular Volume 82.9 fL (80.0-98.0); Mean Platelet Volume 10.1 fL (9.4-12.3); Monocytes Absolute Auto 1.1 X10*3/uL (0.1-1.2); Monocytes Percent Auto 8.2 % (2-11); Neutrophils Absolute Auto 10.8 x10*3/uL (2.0-8.3); Neutrophils Percent Auto 83.3 % (45-73); Platelet Count 349 X10*3/uL (160-400); Red Blood Count 4.55 X10*6/uL (4.20-5.50); Red Cell Distribution Width 14.7 % (11.0-16.0)
[2022-07-25 08:08] LABS: Anion Gap 17 (12-20); Blood Urea Nitrogen 5 mg/dL (9-16); Calcium 8.9 mg/dL (8.4-10.2); Carbon Dioxide 17 mmol/L (22-29); Chloride 109 mmol/L (96-108); Creatinine Clr Calc Pharmacy 172.4; Estimated Glomerular Filt Rate > 60; Glucose Random 84 mg/dL (60-115); Potassium 4.3 mmol/L (3.3-5.1); Sodium 139 mmol/L (135-145)
--- NOTE | 2022-07-25 09:56 | MHC.CM.PN ---
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
--- NOTE | 2022-07-25 15:31 | HO.POSTANES ---
Post Anesthesia Evaluation Post Anesthesia Evaluation Vital Signs: Vital Signs Temp Pulse Resp BP Pulse Ox O2 Del Method 07/25/22 07:08 98.1 F 66 18 140/67 H 97 Room Air 07/25/22 06:54 Room Air 07/25/22 03:46 98.3 F 63 16 146/66 H 98 Room Air Anesthesia: General Endotracheal-GETA Mental Status: Awake Pain Control: Satisfactory Nausea/Vomiting: None Hydration: Adequate Anesthesia-Related Issues: No Anes. Related Issues
== END 2022-07-25 09:52 | disposition home or self-care (01) | DRG 621 ==
LOC: HO.SSSA 12:30 → HO.S3 14:02
PROVIDERS: Anesthesiology; Physician Assistant Surgical; Admitting Provider Surgery; Visit Provider Surgery
PROC: 0DB64Z3 Excision of Stomach, Percutaneous Endoscopic Approach, Vertical (ICD-10-PCS; CPT 43845; principal; 2022-07-24 10:10)
DX: E66.01 Morbid (severe) obesity due to excess calories (principal); Z68.42 Body mass index [BMI] 45.0-49.9, adult; K76.0 Fatty (change of) liver, not elsewhere classified; F50.81 Binge eating disorder; F32.A Depression, unspecified; Z87.891 Personal history of nicotine dependence; Z79.899 Other long term (current) drug therapy
CPT/HCPCS: 36415; 80048; 80053; 80061; 80323; 81025; 82306; 82607; 82728; 83036; 83540; 83970; 84425; 84443; 84590; 84630; 85014; 85018; 85025; 85610; 85730; 86140; 86850; 86900; 86901; 87635; 88307; 88342; C9088; J0131; J0690; J1100; J1170; J2250; J2405; J3010

== ENCOUNTER → 2022-07-31 13:02 | Outpatient (BNVA) | payer MEDICARE, MEDICAID, SELFPAY | PROVIDERS: PCP Internal Medicine; Visit Provider Physician Assistant Surgical | DX: E66.01 Morbid (severe) obesity due to excess calories (principal); F50.81 Binge eating disorder; Z68.41 Body mass index [BMI] 40.0-44.9, adult; Z90.3 Acquired absence of stomach [part of] | CPT/HCPCS: 99212 ==

== ENCOUNTER → 2022-08-07 14:39 | Outpatient (BNVA) | payer MEDICARE, MEDICAID, SELFPAY | PROVIDERS: PCP Internal Medicine; Visit Provider Physician Assistant | DX: E66.01 Morbid (severe) obesity due to excess calories (principal); Z90.3 Acquired absence of stomach [part of]; Z68.41 Body mass index [BMI] 40.0-44.9, adult | CPT/HCPCS: 99212 ==

== ENCOUNTER → 2022-08-13 13:30 | Outpatient (BNVA) | payer MEDICARE, MEDICAID, SELFPAY | PROVIDERS: PCP Internal Medicine; Visit Provider Counselor Mental Health ==

== ENCOUNTER → 2022-08-19 13:36 | Outpatient (BNVA) | payer MEDICARE, MEDICAID, SELFPAY | PROVIDERS: PCP Internal Medicine; Visit Provider Counselor Mental Health ==

== ENCOUNTER → 2022-08-22 09:00 | Outpatient (BNVA) | payer MEDICARE, MEDICAID, SELFPAY | PROVIDERS: PCP Internal Medicine; Visit Provider Physician Assistant | DX: E66.01 Morbid (severe) obesity due to excess calories (principal); Z90.3 Acquired absence of stomach [part of]; Z68.41 Body mass index [BMI] 40.0-44.9, adult | CPT/HCPCS: 99212 ==

== ENCOUNTER → 2022-09-02 13:57 | Outpatient (BNVA) | payer MEDICARE, MEDICAID, SELFPAY | PROVIDERS: PCP Internal Medicine; Visit Provider Counselor Mental Health ==

== ENCOUNTER → 2022-09-04 14:11 | Outpatient (BNVA) | payer MEDICARE, MEDICAID, SELFPAY | PROVIDERS: PCP Internal Medicine; Referring Provider Internal Medicine; Visit Provider Dietitian, Registered | DX: E66.01 Morbid (severe) obesity due to excess calories (principal); Z98.84 Bariatric surgery status; Z71.3 Dietary counseling and surveillance | CPT/HCPCS: 97803 ==

== ENCOUNTER → 2022-09-09 14:13 | Outpatient (BNVA) | payer MEDICARE, MEDICAID, SELFPAY | PROVIDERS: PCP Internal Medicine; Visit Provider Counselor Mental Health | DX: F43.22 Adjustment disorder with anxiety (principal); Z98.84 Bariatric surgery status; Z90.3 Acquired absence of stomach [part of] | CPT/HCPCS: 99212 ==

== ENCOUNTER 2022-09-21 23:34 | Emergency (ER) | payer MEDICARE, MEDICAID, SELFPAY ==
[2022-09-21 23:44] VITALS: BP 138/72; PULSE 60; RESP 18; TEMP 36.8; O2SAT 100; BMI 40.0
--- NOTE | 2022-09-22 00:08 | ED_ITS ---
HPI - Ear Problem General Chief complaint: Ear Problems Stated complaint: possible ear infection Time Seen by Provider: 09/22/22 00:01 Source: patient Mode of arrival: ambulatory Limitations: no limitations History of Present Illness HPI Narrative: Patient comes to the ED c/o R sided ear fullness, discomfort. Patient states it has been ongoing intermittently for about 2 months. Patient denies any ear discharge or fever, denies mastoid bone tenderness. Patient states that for last couple of months it feels like she had just come out of the swimming pool. Hearing is a bit muffled from the right side, no complaints on the left ear. Denies sore throat, no sinus pain, no runny nose. Related Data Home Medications Medication Instructions Recorded Confirmed spironolactone 25 mg tablet 5 mg PO DAILY 03/08/22 06/21/22 Previous Rx's Medication Instructions Recorded pantoprazole 40 mg tablet,delayed 40 mg PO QAM 30 days #30 tabs 07/01/22 release fexofenadine 180 mg tablet 180 mg PO DAILY #20 tabs 09/22/22 (Nhi Hives) hydrocortisone-acetic acid 1 %-2 % 4 drp otic (ear) right TID #10 mL 09/22/22 ear drops Allergies Allergy/AdvReac Type Severity Reaction Status Date / Time No Known Allergies Allergy Mild NONE Verified 09/21/22 23:46 Review of Systems Review of Systems: Constitutional : No Weight loss, No Fever, No Chills, No Night Sweats, No Fatigue, No Malaise ENT/Mouth : No Hearing loss, complaining of right-sided ear discomfort and fullness, muffled hearing, No Nasal Congestion, No Sinus Pain, No Hoarseness, No sore throat, No Rhinorrhea, No Swallowing Difficulty Eyes: No Eye Pain, No Swelling, No Redness, No Foreign Body, No Discharge, No Vision Changes Cardiovascular : No Chest Pain, No SOB, No Dyspnea on Exertion, No Orthopnea, No Edema, No Palpitations Respiratory : No Cough, No Sputum, No Wheezing, No Smoke Exposure, No Dyspnea Gastrointestinal : No Nausea, No Vomiting, No Diarrhea, No Constipation, No abdominal Pain, No Hematochezia, No Melena Genitourinary : no irregular bleeding, No Dysuria, No Urinary Frequency, No Hematuria, No Urinary Incontinence, No Urgency, No Flank Pain, No Urinary Flow Changes, No Hesitancy Musculoskeletal : No joint pain, No Myalgias, No Joint Swelling Skin : No Skin Lesions, No rash Neuro : No Weakness, No Numbness, No Paresthesias, No Loss of Consciousness, No Dizziness, No Headache Psych : No Anxiety/Panic, No Depression, No SI/HI/AH/VH, No Social Issues, Heme/Lymph: No Bruising, No Bleeding,No Lymphadenopathy Endocrine : No Polyuria, No Polydipsia, No Temperature Intolerance COUNTS INCLUDE 234 BEDS AT THE [facility] Past Medical History Medical History Binge-eating disorder, in partial remission, mild Cigarette smoker Cigarette smoker Depression Family history of anesthesia complication Fuchs' corneal dystrophy of both eyes Pre-op evaluation Surgical History Hx of cornea transplant Family History Family History Mother No problems noted. Father Heart failure Hypertension High cholesterol Heart attack Brother No problems noted. Social History Social History Household Members: Family Household Members Other:: father Housing: House Are you a primary caregivers homecare to a significant other at home: No Do you presently have visiting nurse or other home services: No Alcohol intake: current Alcohol intake frequency: holidays/special occasions only Patient Tobacco Use Status: Former Tobacco user Quit Date: 06/19/22 Tobacco use type: Cigarette Cigarette Packs Per Day: 0.5 Years Smoked: 20 Substance Use Type: Marijuana Advance Directives: No Advance Directives Information Provided: No service: No Current occupational status: employed Physical Exam Vital Signs: Vital Signs: Last Vital Signs Temp 98.2 F 09/21/22 23:44 Pulse 60 09/21/22 23:44 Resp 18 09/21/22 23:44 BP 138/72 09/21/22 23:44 Pulse Ox 100 09/21/22 23:44 O2 Del Method Room Air 09/21/22 23:44 BMI result Body Mass Index 40.0 Const: Other: Appearance: Alert. Oriented X3. No acute distress. Eyes: Pupils equal, round and reactive to light. ENT: Pharynx normal. Tympanic membranes within normal limits, no otitis media or externa Neck: Normal inspection. Neck supple. No lymph nodes noted. No crepitus CVS: Normal heart rate and rhythm. Pulses normal. Normal S1 and S2 Respiratory: No respiratory distress. Breath sounds normal. No Wheezing. No rales Abdomen: Soft and nontender. No rigidity. No distention. Skin: Skin warm and dry. Normal skin color. Normal skin turgor. Extremities: No lower extremity edema. No Lacerations. No Rash Neuro: Oriented X 3. No motor deficit. No sensory deficit. Moving all extremities. No slurred speech. CN 2 through 12 grossly intact Psych: calm, cooperative, normal affect Medical Decision Making Medical Decision Making MDM Narrative: -I discussed with the patient her physical exam, no otitis, patient may have some fluid behind the tympanic membrane on the right but it has known infected. Discharge Plan Discharge Clinical Impression: Otalgia of right ear Patient Disposition: Home, Self-Care Instructions: Earache (ED) Additional Instructions: Please follow-up with your primary care physician tomorrow. If you have any worsening or new symptoms, please return to the emergency room or call 911 Prescriptions: New fexofenadine [Nhi Hives] 180 mg tablet 180 mg PO DAILY Qty: 20 0RF hydrocortisone-acetic acid 1-2 % drops 4 drp otic (ear) right TID Qty: 10 0RF No Action spironolactone 25 mg tablet 5 mg PO DAILY pantoprazole 40 mg tablet,delayed release (DR/EC) 40 mg PO QAM 30 Days Qty: 30 2RF
[2022-09-22 00:28] VITALS: BP 121/66; PULSE 55; RESP 16; TEMP 37; O2SAT 98
== END 2022-09-22 00:38 | disposition home or self-care (01) ==
PROVIDERS: Emergency Provider Emergency Medicine
DX: H92.01 Otalgia, right ear (principal); F17.210 Nicotine dependence, cigarettes, uncomplicated; Z71.6 Tobacco abuse counseling; Z79.899 Other long term (current) drug therapy
CPT/HCPCS: 99284

== ENCOUNTER → 2022-09-23 13:09 | Outpatient (BNVA) | payer MEDICARE, MEDICAID, SELFPAY | PROVIDERS: Visit Provider Counselor Mental Health ==

== ENCOUNTER → 2022-09-30 13:04 | Outpatient (BNVA) | payer MEDICARE, MEDICAID, SELFPAY | PROVIDERS: Visit Provider Counselor Mental Health | DX: E66.01 Morbid (severe) obesity due to excess calories (principal); F43.22 Adjustment disorder with anxiety; Z90.3 Acquired absence of stomach [part of]; Z68.39 Body mass index [BMI] 39.0-39.9, adult | CPT/HCPCS: 97803 ==

== ENCOUNTER → 2022-10-15 08:15 | Outpatient (BNVA) | payer MEDICARE, MEDICAID, SELFPAY | PROVIDERS: Visit Provider Dietitian, Registered | DX: E66.9 Obesity, unspecified (principal); Z68.38 Body mass index [BMI] 38.0-38.9, adult; Z98.84 Bariatric surgery status; Z71.3 Dietary counseling and surveillance | CPT/HCPCS: 97803 ==

== ENCOUNTER → 2022-10-21 14:10 | Outpatient (BNVA) | payer MEDICARE, MEDICAID, SELFPAY | PROVIDERS: Visit Provider Counselor Mental Health ==

== ENCOUNTER 2022-11-04 13:44 | Outpatient (AMB) | payer MEDICARE, MEDICAID, SELFPAY ==
--- NOTE | 2022-11-04 14:58 | A.OFFWM_ITS ---
Intake Intake Visit Reasons: (OV) PO LSG 07/24/22 Allergies No Known Allergies Allergy (Mild, Verified 09/21/22 23:46) NONE PFSH Medical History Binge-eating disorder, in partial remission, mild Cigarette smoker Cigarette smoker Depression Family history of anesthesia complication Fuchs' corneal dystrophy of both eyes Pre-op evaluation Surgical History Hx of cornea transplant Family History Mother No problems noted. Father Heart failure Hypertension High cholesterol Heart attack Brother No problems noted. Social History Household Members: Family Household Members Other:: father Housing: House Are you a primary patient care nursing assistant to a significant other at home: No Do you presently have visiting nurse or other home services: No Alcohol intake: current Alcohol intake frequency: holidays/special occasions only Patient Tobacco Use Status: Former Tobacco user Quit Date: 06/19/22 Tobacco use type: Cigarette Cigarette Packs Per Day: 0.5 Years Smoked: 20 Substance Use Type: Marijuana service: No Current occupational status: employed Behavioral Health Assessment Weight Management Therapy Therapy Notes Details Patients discussed her progress in the program. She reported feeling down mood the past couple of days, she has been continuing to workout despite wanting to just lay down due to low energy. She does not understand why she is feeling this way. Positive reinforcement and motivation interviewing used as well as active and supportive listening. Assessment & Plan Assessment & Plan (1) Major depressive disorder, recurrent, moderate: Code(s): F33.1 - Major depressive disorder, recurrent, moderate (2) Status post sleeve gastrectomy: Code(s): Z90.3 - Acquired absence of stomach [part of] Plan Pt has been struggling with anxiety and depression prior to surgery and post surgery possibly triggered by body changes and significant weight loss. She is learning to adjust and will continue working with this advertising writer weekly. Pt is interested in pursuing EMDR. Coding Level of Care Code Psytx 45 mins (73978) Diagnoses Major depressive disorder, recurrent, moderate F33.1 Status post sleeve gastrectomy Z90.3 Time Spent (min) 45
== END 2022-11-04 14:53 | disposition home or self-care (01) ==
LOC: HO.HBST 13:44
PROVIDERS: Visit Provider Counselor Mental Health
DX: F33.1 Major depressive disorder, recurrent, moderate (principal); Z90.3 Acquired absence of stomach [part of]
CPT/HCPCS: 90834

== ENCOUNTER → 2022-11-04 13:44 | Outpatient (BNVA) | payer MEDICARE, MEDICAID, SELFPAY | PROVIDERS: Visit Provider Counselor Mental Health ==

== ENCOUNTER 2022-11-29 14:34 | Outpatient (AMB) | payer MEDICARE, MEDICAID, SELFPAY ==
--- NOTE | 2022-11-29 13:48 | MHC.AMNUTRGE ---
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 on several occasions ate cookies again. Is snacking and making poor food choices aside from her planned meals especially at work. Knows these are bad decisions but makes them anyway. She has a therapist, and also meets with Lilliana. Patient would like to discontinue the 4 in 1 shakes, is getting bored of the same flavor Exercise: Currently minimal - was doing 3-4x per week, 40 minutes online videos, Jorge, and TRX which she really loved. Hydration: 32-64oz water Dietary counseling reduction Diagnosis Nutrition problem #1 overweight/obesity As related to (etiology) #1 excess energy intake and physical inactivity As evidenced by (sign/symptom) #1 high BMI Monitoring/Goals Nutrition problem monitoring total energy intake, level of knowledge/skill, total PRO intake, total CHO intake, weight and oral fluids Outcome progress progressing Learning/Education Readiness to learn excellent Stages of change action Most Recent Diabetes Results: No Data to Display [facility] Medical History Binge-eating disorder, in partial remission, mild Cigarette smoker Cigarette smoker Depression Family history of anesthesia complication Fuchs' corneal dystrophy of both eyes Pre-op evaluation Surgical History Hx of cornea transplant Family History Mother No problems noted. Father Heart failure Hypertension High cholesterol Heart attack Brother No problems noted. Social History Household Members: Family Household Members Other:: father Housing: House Are you a primary pharmacy customer care specialist to a significant other at home: No Do you presently have visiting nurse or other home services: No Alcohol intake: current Alcohol intake frequency: holidays/special occasions only Patient Tobacco Use Status: Former Tobacco user Quit Date: 06/19/22 Tobacco use type: Cigarette Cigarette Packs Per Day: 0.5 Years Smoked: 20 Substance Use Type: Marijuana service: No Current occupational status: employed Assessment & Plan Assessment & Plan (1) Obesity (BMI 30-39.9): Code(s): E66.9 - Obesity, unspecified Patient Instructions: Consider bringing a protein bar with her to work so she may choose that in place of a cookie/brownie. Can switch from 4in1 to the rebuild powder with milk, twice per day. continue two meals 2oz protein each or a bar. Read scoop sizes. will continue to work on habit change with . follow up with me in 1 month Coding Level of Care Code Nutr Indiv Subseq ([id number]) Diagnoses Obesity (BMI 30-39.9) E66.9 Time Spent (min) 30
[2022-11-29 15:16] VITALS: BMI 37.0
== END 2022-11-29 15:08 | disposition home or self-care (01) ==
PROVIDERS: Visit Provider Dietitian, Registered
DX: E66.9 Obesity, unspecified (principal)

== ENCOUNTER → 2022-11-29 14:34 | Outpatient (BNVA) | payer MEDICARE, MEDICAID, SELFPAY | PROVIDERS: Visit Provider Dietitian, Registered | DX: E66.9 Obesity, unspecified (principal); Z68.37 Body mass index [BMI] 37.0-37.9, adult; Z98.84 Bariatric surgery status; Z71.3 Dietary counseling and surveillance | CPT/HCPCS: 97803 ==

== ENCOUNTER 2022-12-24 14:03 | Outpatient (AMB) | payer MEDICARE, MEDICAID, SELFPAY ==
--- NOTE | 2022-12-24 14:08 | MHC.AMNUTRGE ---
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 Hydration: 32-64oz water Dietary counseling reduction Diagnosis Nutrition problem #1 overweight/obesity As related to (etiology) #1 excess energy intake and physical inactivity As evidenced by (sign/symptom) #1 high BMI Monitoring/Goals Nutrition problem monitoring total energy intake, level of knowledge/skill, total PRO intake, total CHO intake, weight and oral fluids Outcome progress progressing Learning/Education Readiness to learn excellent Stages of change action Most Recent Diabetes Results: No Data to Display [facility] Medical History Binge-eating disorder, in partial remission, mild Cigarette smoker Cigarette smoker Depression Family history of anesthesia complication Fuchs' corneal dystrophy of both eyes Pre-op evaluation Surgical History Hx of cornea transplant Family History Mother No problems noted. Father Heart failure Hypertension High cholesterol Heart attack Brother No problems noted. Social History Household Members: Family Household Members Other:: father Housing: House Are you a primary vision care associate to a significant other at home: No Do you presently have visiting nurse or other home services: No Alcohol intake: current Alcohol intake frequency: holidays/special occasions only Patient Tobacco Use Status: Former Tobacco user Quit Date: 06/19/22 Tobacco use type: Cigarette Cigarette Packs Per Day: 0.5 Years Smoked: 20 Substance Use Type: Marijuana service: No Current occupational status: employed Assessment & Plan Assessment & Plan (1) Obesity (BMI 30-39.9): Code(s): E66.9 - Obesity, unspecified Patient Instructions: overall she is doing well, continues to work on troubling habits and learning how to navigate some of her biggest struggles (emotional eating, exercise, cravings etc). PA next for 6MO appt, then resume monthyl f/u with me and communicate as needed . Coding Level of Care Code Nutr Indiv Subseq (23710) Diagnoses Obesity (BMI 30-39.9) E66.9 Time Spent (min) 30
[2022-12-27 12:02] VITALS: BMI 35.2
== END 2022-12-24 15:13 | disposition home or self-care (01) ==
PROVIDERS: Visit Provider Dietitian, Registered
DX: E66.9 Obesity, unspecified (principal)

== ENCOUNTER → 2022-12-24 14:03 | Outpatient (BNVA) | payer MEDICARE, MEDICAID, SELFPAY | PROVIDERS: Visit Provider Dietitian, Registered | DX: E66.9 Obesity, unspecified (principal); Z68.35 Body mass index [BMI] 35.0-35.9, adult; Z98.84 Bariatric surgery status; Z71.3 Dietary counseling and surveillance | CPT/HCPCS: 97803 ==

== ENCOUNTER 2023-01-22 13:59 | Outpatient (AMB) | payer MEDICARE, MEDICAID, SELFPAY ==
--- NOTE | 2023-01-22 14:02 | A.OFFVIS_ITS ---
Intake VS Expanded 01/22/23 14:10 BP 110/69 Blood Pressure Location Rt brachial Blood Pressure Position Sitting Pulse 76 Pulse Source Pulse Oximeter Temp 99.1 F Temperature Source Temporal Artery Scan Pulse Oximetry 97 Oxygen Delivery Method Room Air Height 5 ft 3 in Weight 195 lb 12.8 oz BMI 34.7 Body Fat % 38.0 Body Fat Mass 74.2 Fat Free Mass 121.4 Visceral Fat Rating 8.0 Body Water % 44.5 Body Water Mass 87.0 Muscle Mass/Score 115.4 Basal Metabolic Rate/Score 1,689 Intake Visit Reasons: (OV) PO LSG 07/24/22 Neonatal Intensive Care Nurse Required: No Allergies No Known Allergies Allergy (Mild, Verified 01/22/23 14:14) NONE Medication List - Last Reconciled 01/22/23 by JENNIFER Wasserman spironolactone 5 mg PO DAILY HPI HPI Comments History of Present Illness Details 32-year-old female presents to the offic e for six-month follow-up, status post sleeve gastrectomy on 07/24/2022. 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 Taking celebrate MVI and graham + D Any post op complications: none GORDY: never DM: never HTN: never Hyperlipidemia: never GERD:?0-5 scale ??0 = no symptoms ??1 = symptoms noticeable but not bothersome 2 =symptoms bothersome but not daily ? 3 = symptoms bothersome and daily 4 = symptoms affect daily activities 5 = symptoms are incapacitating, unable to do daily activities ? How bad is the heartburn: 0 ? Heartburn while lying down: 0 ? Heartburn when standing up: 0 ? Heartburn after meals: 0 ? Does heartburn change your diet: 0 ? Does heartburn wake you up from sleep: 0 ? Do you have difficulty swallowin ? Do you have pain with swallowin ? If you take medicine for your reflux, does this affect your daily life: 0 Satisfaction with present condition - satisfied or not satisfied: satisfied [facility] Medical History Depression Family history of anesthesia complication Fuchs' corneal dystrophy of both eyes Cigarette smoker Binge-eating disorder, in partial remission, mild Cigarette smoker Pre-op evaluation Surgical History Hx of cornea transplant Family History Mother No problems noted. Father Heart failure Hypertension High cholesterol Heart attack Brother No problems noted. Social History Household Members: Family Household Members Other:: father Housing: House Are you a primary hearing healthcare practitioner to a significant other at home: No Do you presently have visiting nurse or other home services: No Alcohol intake: current Alcohol intake frequency: holidays/special occasions only Patient Tobacco Use Status: Former Tobacco user Quit Date: 06/19/22 Tobacco use type: Cigarette Cigarette Packs Per Day: 0.5 Years Smoked: 20 Substance Use Type: Marijuana service: No Current occupational status: employed Review of Systems Const All systems reviewed & are unremarkable except as noted in HPI and below Physical Exam Const General: cooperative and no acute distress Orientation/consciousness: patient oriented x3 Resp Effort & Inspection: normal respiratory effort Auscultation: clear to auscultation bilaterally Cardio Rate: regular rate Rhythm: regular rhythm GI Inspection: Yes normal to inspection and Yes incision (well healed) Palpation (GI): Soft to palpation and no masses Neuro General: patient oriented x3 Assessment & Plan Assessment & Plan (1) Obesity with body mass index (BMI) of 30.0 to 39.9: Code(s): E66.9 - Obesity, unspecified Plan: check 6 month labs Try to increase exercise to 400 graham per session Decrease 1 of the two shakes to 1/2 daily, not both RTC w Kyra as scheduled Orders: Orders Insulin Today E66.9 - Obesity, unspecified, Z90.3 - Acquired absence of stomach [part of] Lipid Panel Today E66.9 - Obesity, unspecified, Z90.3 - Acquired absence of stomach [part of] Vitamin B12 and Folate Today E66.9 - Obesity, unspecified, Z90.3 - Acquired absence of stomach [part of] Zinc Today E66.9 - Obesity, unspecified, Z90.3 - Acquired absence of stomach [part of] Vitamin B1 Today E66.9 - Obesity, unspecified, Z90.3 - Acquired absence of stomach [part of] C Reactive Protein Today E66.9 - Obesity, unspecified, Z90.3 - Acquired absence of stomach [part of] Ferritin Today E66.9 - Obesity, unspecified, Z90.3 - Acquired absence of stomach [part of] Vitamin D 25-OH Total Today E66.9 - Obesity, unspecified, Z90.3 - Acquired absence of stomach [part of] Hemoglobin A1c Today E66.9 - Obesity, unspecified, Z90.3 - Acquired absence of stomach [part of] IRON PROFILE Today E66.9 - Obesity, unspecified, Z90.3 - Acquired absence of stomach [part of] Complete Blood Count Auto Diff Today E66.9 - Obesity, unspecified, Z90.3 - Acquired absence of stomach [part of] Vitamin A Today E66.9 - Obesity, unspecified, Z90.3 - Acquired absence of stomach [part of] PTHI Today E66.9 - Obesity, unspecified, Z90.3 - Acquired absence of stomach [part of] TSH reflex Free T4 Today E66.9 - Obesity, unspecified, Z90.3 - Acquired absence of stomach [part of] Basic Metabolic Panel Today E66.9 - Obesity, unspecified, Z90.3 - Acquired absence of stomach [part of] Coding Level of Care Code Est Pt Level 4 (95400) Diagnoses Obesity with body mass index (BMI) of 30.0 to 39.9 E66.9 Time Spent (min) 40
[2023-01-22 14:10] VITALS: BP 110/69; PULSE 76; TEMP 37.3; O2SAT 97; BMI 34.7
== END 2023-01-22 16:03 | disposition home or self-care (01) ==
PROVIDERS: Visit Provider Physician Assistant Surgical
DX: E66.9 Obesity, unspecified (principal); Z68.34 Body mass index [BMI] 34.0-34.9, adult; Z90.3 Acquired absence of stomach [part of]; Z98.84 Bariatric surgery status
CPT/HCPCS: 99214

== ENCOUNTER → 2023-01-22 13:59 | Outpatient (BNVA) | payer MEDICARE, MEDICAID, SELFPAY | PROVIDERS: Visit Provider Physician Assistant Surgical | DX: E66.9 Obesity, unspecified (principal); F50.81 Binge eating disorder; Z68.34 Body mass index [BMI] 34.0-34.9, adult; Z90.3 Acquired absence of stomach [part of] | CPT/HCPCS: 99212 ==

== ENCOUNTER → 2023-02-27 13:52 | Outpatient (BNVA) | payer MEDICARE, MEDICAID, SELFPAY | PROVIDERS: Visit Provider Dietitian, Registered | DX: E66.9 Obesity, unspecified (principal) | CPT/HCPCS: 97803 ==

== ENCOUNTER 2023-03-12 08:28 | Outpatient (REF) | payer MEDICARE, MEDICAID, SELFPAY ==
[2023-03-12 08:49] LABS: MANUAL DIFF FLAG NO
[2023-03-12 09:00] LABS: Basophils Percent Auto 0.6 % (0-2); Eosinophils Absolute Auto 0.2 X10*3/uL (0.0-0.4); Eosinophils Percent Auto 3.6 % (0-4); Hematocrit 39.8 % (37.0-47.0); Hemoglobin 13.2 g/dl (12.0-16.0); Imm Gran Abs Auto 0.01 X10*3/uL (0.00-0.03); Imm Gran Pct Auto 0.2 % (0.0-0.4); Lymphocytes Absolute Auto 2.4 X10*3/uL (1.2-4.9); Lymphocytes Percent Auto 37.4 % (20-40); Mean Corpuscular HGB Conc 33.2 g/dl (31.0-35.0); Mean Corpuscular Hemoglobin 28.8 pg (27.0-33.0); Mean Corpuscular Volume 86.7 fL (80.0-98.0); Mean Platelet Volume 9.5 fL (9.4-12.3); Monocytes Absolute Auto 0.5 X10*3/uL (0.1-1.2); Monocytes Percent Auto 7.6 % (2-11); Neutrophils Absolute Auto 3.2 x10*3/uL (2.0-8.3); Neutrophils Percent Auto 50.6 % (45-73); Platelet Count 245 X10*3/uL (160-400); Red Blood Count 4.59 X10*6/uL (4.20-5.50); Red Cell Distribution Width 13.8 % (11.0-16.0); White Blood Count 6.3 X10*3/uL (4.8-10.8)
[2023-03-12 09:09] LABS: Estimated Average Glucose 105 mg/dL; Hemoglobin A1c % 5.3 % (<6.0)
[2023-03-12 09:27] LABS: Anion Gap 10 (12-20); Blood Urea Nitrogen 13 mg/dL (9-16); Calcium 9.7 mg/dL (8.4-10.2); Carbon Dioxide 27 mmol/L (22-29); Chloride 109 mmol/L (96-108); Cholesterol 136 mg/dL (<200); Estimated Glomerular Filt Rate > 60; Glucose Random 87 mg/dL (60-115); HDL Cholesterol 52 mg/dL (>40); Iron 70 mcg/dL (30-160); LDL Cholesterol Calculated 71 mg/dL (<100); Percent Iron Saturation 21 % (15-50); Potassium 4.2 mmol/L (3.3-5.1); Sodium 142 mmol/L (135-145); Total Iron Binding Capacity 327 mcg/dL (228-428); Triglycerides 68 mg/dL (<150); Unsaturated Iron Binding 257 ug/dL
[2023-03-12 09:50] LABS: Ferritin 39 ng/mL (10-122); Vitamin D 25-OH Total 53.4 ng/mL (>30)
[2023-03-12 09:59] LABS: Insulin 12 uU/mL (2-29)
[2023-03-12 10:00] LABS: Folate 11.6 ng/mL (> or = 4.0); Vitamin B12 759 pg/mL (200-900)
[2023-03-14 11:59] LABS: Calcium (PTHI) 9.6 mg/dL (8.6-10.2); PTHI 36 pg/mL (16-77)
[2023-03-15 16:07] LABS: Zinc 72 mcg/dL (60-130)
[2023-03-17 01:28] LABS: Vitamin B1 17 nmol/L (8-30)
[2023-03-18 02:54] LABS: Vitamin A 41 mcg/dL (38-98)
== END 2023-03-12 08:29 | disposition home or self-care (01) ==
LOC: HO.LAB 08:28
PROVIDERS: Visit Provider Physician Assistant Surgical
DX: E66.9 Obesity, unspecified (principal); Z90.3 Acquired absence of stomach [part of]
CPT/HCPCS: 36415; 80048; 80061; 82306; 82607; 82728; 82746; 83036; 83525; 83540; 83970; 84425; 84443; 84590; 84630; 85025; 86140

== ENCOUNTER 2023-03-24 13:49 | Outpatient (AMB) | payer MEDICARE, MEDICAID, SELFPAY ==
--- NOTE | 2023-03-24 13:59 | MHC.AMNUTRGE ---
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 has more control over her hunger. does have several indulgences through the week though . didn't realize how much she was eating in addition to her meals until today. She is receptive to food logging to bring more awareeness. We also talked about still allowing herself certain foods but in appropriate portions, and identifying trigger foods . 10-11am wakes up , if waking up early, will do coffee with 1 tbsp cream 12:30pm shake 8oz 1% milk or skim milk with 2 scoops orgain. was previously doing 1 scoop but made her uncontrollably hungry. 3pm 2oz protein or full protein bar 7pm 2oz protein , 2oz veg 9pm protein shake Exercise: last week none, prior was doing 15 minutes weight training 30 inutes cardio Hydration: 32-64oz water Dietary counseling reduction Diagnosis Nutrition problem #1 overweight/obesity As related to (etiology) #1 excess energy intake and physical inactivity As evidenced by (sign/symptom) #1 high BMI Monitoring/Goals Nutrition problem monitoring total energy intake, level of knowledge/skill, total PRO intake, total CHO intake, weight and oral fluids Outcome progress progressing Learning/Education Readiness to learn excellent Stages of change action Most Recent Diabetes Results: Cholesterol 136 mg/dL (<200) 03/12/23 HDL Cholesterol 52 mg/dL (>40) 03/12/23 Triglycerides 68 mg/dL (<150) 03/12/23 Creatinine 0.65 mg/dL (0.5-1.4) 03/12/23 Blood Urea Nitrogen 13 mg/dL (9-16) 03/12/23 Sodium 142 mmol/L (135-145) 03/12/23 Potassium 4.2 mmol/L (3.3-5.1) 03/12/23 Chloride 109 mmol/L (96-108) H 03/12/23 Carbon Dioxide 27 mmol/L (22-29) 03/12/23 Calcium 9.7 mg/dL (8.4-10.2) 03/12/23 [facility] Medical History Depression Family history of anesthesia complication Fuchs' corneal dystrophy of both eyes Cigarette smoker Binge-eating disorder, in partial remission, mild Cigarette smoker Pre-op evaluation Surgical History Hx of cornea transplant Family History Mother No problems noted. Father Heart failure Hypertension High cholesterol Heart attack Brother No problems noted. Social History Household Members: Family Household Members Other:: father Housing: House Are you a primary director career services to a significant other at home: No Do you presently have visiting nurse or other home services: No Alcohol intake: current Alcohol intake frequency: holidays/special occasions only Patient Tobacco Use Status: Former Tobacco user Quit Date: 06/19/22 Tobacco use type: Cigarette Cigarette Packs Per Day: 0.5 Years Smoked: 20 Substance Use Type: Marijuana service: No Current occupational status: employed Assessment & Plan Assessment & Plan (1) Obesity with body mass index (BMI) of 30.0 to 39.9: Code(s): E66.9 - Obesity, unspecified Plan next nutrition follow up 1-3 months. Patient Instructions: Provided self monitoring tools, recommended stimulus control, food logging, portion control Coding Level of Care Code Nutr Indiv Subseq (40468) Diagnoses Obesity with body mass index (BMI) of 30.0 to 39.9 E66.9 Time Spent (min) 45
== END 2023-03-24 15:00 | disposition home or self-care (01) ==
PROVIDERS: Visit Provider Dietitian, Registered
DX: E66.9 Obesity, unspecified (principal)

== ENCOUNTER 2023-03-24 13:49 | Outpatient (AMB) | payer MEDICARE, MEDICAID, SELFPAY ==
--- NOTE | 2023-04-10 14:19 | MHC.WMTHER ---
Intake Intake Visit Reasons: (OV) PO LSG 07/24/22 Allergies No Known Allergies Allergy (Mild, Verified 01/22/23 14:14) NONE PFSH Medical History Depression Family history of anesthesia complication Fuchs' corneal dystrophy of both eyes Cigarette smoker Binge-eating disorder, in partial remission, mild Cigarette smoker Pre-op evaluation Surgical History Hx of cornea transplant Family History Mother No problems noted. Father Heart failure Hypertension High cholesterol Heart attack Brother No problems noted. Social History Household Members: Family Household Members Other:: father Housing: House Are you a primary child care lead teacher to a significant other at home: No Do you presently have visiting nurse or other home services: No Alcohol intake: current Alcohol intake frequency: holidays/special occasions only Patient Tobacco Use Status: Former Tobacco user Quit Date: 06/19/22 Tobacco use type: Cigarette Cigarette Packs Per Day: 0.5 Years Smoked: 20 Substance Use Type: Marijuana service: No Current occupational status: employed Behavioral Health Assessment Weight Management Therapy Therapy Notes Details Today patient talked about her struggles with eating sweets, mainly cookies. She will often buy them from the cafeteria and other places. She knows she should not be doing this. We reviewed her goals, progress, and came up with a plan. (initial intake) Patient is looking to have weight loss surgery to help improve her health and quality of life. Heart issues run in her family and she wants to avoid them. Patient reported that she has been in therapy since she was 12 for depression and anxiety. She sees Alethea Colindres from [facility]. She reported previous inpatient psychiatric admissions at age 16 and 17. Patient had no history of problems with drugs or alcohol. She has previous history of self harming behaviors and/or suicide attempts at age 16, and 17. Presenting Concerns Referral Source provider Reason for referral weight loss surgery evaluation Precipitating Event obesity Living Situation Current Living Situation Relative's/Guardian's Lydia At risk of losing current housing? No Satisfied with current living situation? Yes Comments Patient lives with her father. Food/Weight/Diet Expectations of change weight loss and maintenance History/Relationship with food Patient stated that she has always eaten too much. She reported that she grew up with a mom who was always restricting and calorie counting, thin, and so she watched that and did the opposite. Semi regularly would skip meals and then eat the majority of her calories later in the evening. Baked cookies every week or just eat the cookie dough, potato chips, containers of olives, entire pint of ice cream, sushi, occasional take out. History/Relationship with weight Patient is at her heaviest weight 311lbs, and stated that at age 12 she was considered morbidly obese. History/Relationship with dieting no serious dieting prior to this program. Binge Eating Do you frequently eat large amounts of food in short periods of time, not feeling physically hungry? Yes Do you feel out of control when you eat a large amount of food in a short period of time? No Do you eat large amounts of food rapidly and typically alone? No Night Eating Do you wake up at least once during the night to eat? No If you wake up in the night, do you find that it is necessary to eat something in order to fall back asleep? No Do you have little or no appetite in the morning and feel very hungry in the evening, often overeating between dinner and when you go to bed? Yes Social History Family history and relationship Patient was raised by her parents. Parental/Familial mat inspector obligations none Developmental history and status no issues known Social support mom, dad Baptist/Spirituality unknown Cultural/Ethnic information Legal Involvement and History Current or historical involvement with the legal system? none reported Education Highest grade completed currently enrolled in school for psychology Preferred learning style Auditory, Verbal, Written, Learn by doing and Visual Currently enrolled in educational program? Yes Interested in further educational program? 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 Employment Employment Status [employer] Wants help to find employment? No Financial Situation Describe current financial situation Occasional struggle Financial assistance? None Service Service? No Mental Health and Addiction Treatment Current/Past substance abuse? No Current/Past addictive behavior concerns? No Medications Is the patient compliant with medications? Yes Does the patient have [place] Guardian in place? Not applicable Does the patient use complimentary health approaches? No Trauma/Abuse History History of trauma? No Assessment & Plan Assessment & Plan (1) Major depressive disorder, recurrent, moderate: Code(s): F33.1 - Major depressive disorder, recurrent, moderate (2) Status post sleeve gastrectomy: Code(s): Z90.3 - Acquired absence of stomach [part of] Plan Pt has been struggling with anxiety and depression prior to surgery and post surgery possibly triggered by body changes and significant weight loss. She is learning to adjust and will continue working with this show card writer weekly. Pt is interested in pursuing EMDR. Coding Level of Care Code Psytx 45 mins (27636) Diagnoses Major depressive disorder, recurrent, moderate F33.1 Status post sleeve gastrectomy Z90.3 Time Spent (min) 40
== END 2023-04-10 14:19 | disposition home or self-care (01) ==
PROVIDERS: Visit Provider Counselor Mental Health
DX: F33.1 Major depressive disorder, recurrent, moderate (principal); Z90.3 Acquired absence of stomach [part of]
CPT/HCPCS: 90834

== ENCOUNTER → 2023-03-24 13:49 | Outpatient (BNVA) | payer MEDICARE, MEDICAID, SELFPAY | PROVIDERS: Visit Provider Dietitian, Registered | DX: E66.9 Obesity, unspecified (principal); Z71.3 Dietary counseling and surveillance | CPT/HCPCS: 97803 ==

== ENCOUNTER 2023-04-07 14:15 | Outpatient (AMB) | payer MEDICARE, MEDICAID, SELFPAY ==
--- NOTE | 2023-04-07 14:07 | MHC.AMNUTRGE ---
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 Logged her food for a few days and learned how often she was mindlessly snacking. Over the course of the last few weeks we have learned she does best with lots of protein, planning ahead, and having some self monitoring tools when needed. 10-11am wakes up , if waking up early, will do coffee with 1 tbsp cream 12:30pm shake 8oz 1% milk or skim milk with 2 scoops orgain. was previously doing 1 scoop but made her uncontrollably hungry. 3pm 2oz protein or full protein bar 7pm 2oz protein , 2oz veg 9pm protein shake Exercise: last week 4x per week ; 2 days cardio+weights, 2 days videos Hydration: 32-64oz water Dietary counseling reduction Diagnosis Nutrition problem #1 overweight/obesity As related to (etiology) #1 excess energy intake and physical inactivity As evidenced by (sign/symptom) #1 high BMI Monitoring/Goals Nutrition problem monitoring total energy intake, level of knowledge/skill, total PRO intake, total CHO intake, weight and oral fluids Outcome progress progressing Learning/Education Readiness to learn excellent Stages of change action Most Recent Diabetes Results: Cholesterol 136 mg/dL (<200) 03/12/23 HDL Cholesterol 52 mg/dL (>40) 03/12/23 Triglycerides 68 mg/dL (<150) 03/12/23 Creatinine 0.65 mg/dL (0.5-1.4) 03/12/23 Blood Urea Nitrogen 13 mg/dL (9-16) 03/12/23 Sodium 142 mmol/L (135-145) 03/12/23 Potassium 4.2 mmol/L (3.3-5.1) 03/12/23 Chloride 109 mmol/L (96-108) H 03/12/23 Carbon Dioxide 27 mmol/L (22-29) 03/12/23 Calcium 9.7 mg/dL (8.4-10.2) 03/12/23 [facility] Medical History Depression Family history of anesthesia complication Fuchs' corneal dystrophy of both eyes Cigarette smoker Binge-eating disorder, in partial remission, mild Cigarette smoker Pre-op evaluation Surgical History Hx of cornea transplant Family History Mother No problems noted. Father Heart failure Hypertension High cholesterol Heart attack Brother No problems noted. Social History Household Members: Family Household Members Other:: father Housing: House Are you a primary anesthesiologist and critical care to a significant other at home: No Do you presently have visiting nurse or other home services: No Alcohol intake: current Alcohol intake frequency: holidays/special occasions only Patient Tobacco Use Status: Former Tobacco user Quit Date: 06/19/22 Tobacco use type: Cigarette Cigarette Packs Per Day: 0.5 Years Smoked: 20 Substance Use Type: Marijuana service: No Current occupational status: employed Assessment & Plan Assessment & Plan (1) Obesity with body mass index (BMI) of 30.0 to 39.9: Code(s): E66.9 - Obesity, unspecified Plan: nutrition follow up in a month Telehealth Telehealth Location of provider rendering services: practice address Location of patient: address on file Patient Identification confirmed using: Name, : Yes Telehealth method: video Patient verbally consented to treatment: Yes Patient verbally consented to billing insurance company: Yes Patient informed of any privacy concerns related to visit: Yes Minutes spent on Phone/Video with Pt.: 30 Coding Level of Care Code Nutr Indiv Subseq (20014) Diagnoses Obesity with body mass index (BMI) of 30.0 to 39.9 E66.9 Time Spent (min) 30
== END 2023-04-07 14:31 | disposition home or self-care (01) ==
LOC: HO.HBS 14:15
PROVIDERS: Visit Provider Dietitian, Registered
DX: E66.9 Obesity, unspecified (principal)

== ENCOUNTER → 2023-04-07 14:15 | Outpatient (BNVA) | payer MEDICARE, MEDICAID, SELFPAY | PROVIDERS: Visit Provider Dietitian, Registered | DX: E66.9 Obesity, unspecified (principal) | CPT/HCPCS: 97803 ==

== ENCOUNTER 2023-04-30 15:35 | Outpatient (AMB) | payer MEDICARE, MEDICAID, SELFPAY ==
--- NOTE | 2023-04-30 15:48 | MHC.AMNUTRGE ---
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 Logged her food for a few days and learned how often she was mindlessly snacking. Over the course of the last few weeks we have learned she does best with lots of protein, planning ahead, and having some self monitoring tools when needed. Last appt , was eating the below. Hoever as of recent she reported trying to cut calories, but somedays is only consuming a few hundred calories. we talked about the importance of adequate nutrition 10-11am wakes up , if waking up early, will do coffee with 1 tbsp cream 12:30pm shake 8oz 1% milk or skim milk with 2 scoops orgain. was previously doing 1 scoop but made her uncontrollably hungry. 3pm 2oz protein or full protein bar 7pm 2oz protein , 2oz veg 9pm protein shake Exercise: last week 4x per week ; 2 days cardio+weights, 2 days videos Hydration: 32-64oz water Dietary counseling reduction Diagnosis Nutrition problem #1 overweight/obesity As related to (etiology) #1 excess energy intake and physical inactivity As evidenced by (sign/symptom) #1 high BMI Monitoring/Goals Nutrition problem monitoring total energy intake, level of knowledge/skill, total PRO intake, total CHO intake, weight and oral fluids Outcome progress progressing Learning/Education Readiness to learn excellent Stages of change action Most Recent Diabetes Results: Cholesterol 136 mg/dL (<200) 03/12/23 HDL Cholesterol 52 mg/dL (>40) 03/12/23 Triglycerides 68 mg/dL (<150) 03/12/23 Creatinine 0.65 mg/dL (0.5-1.4) 03/12/23 Blood Urea Nitrogen 13 mg/dL (9-16) 03/12/23 Sodium 142 mmol/L (135-145) 03/12/23 Potassium 4.2 mmol/L (3.3-5.1) 03/12/23 Chloride 109 mmol/L (96-108) H 03/12/23 Carbon Dioxide 27 mmol/L (22-29) 03/12/23 Calcium 9.7 mg/dL (8.4-10.2) 03/12/23 [facility] Medical History Depression Family history of anesthesia complication Fuchs' corneal dystrophy of both eyes Cigarette smoker Binge-eating disorder, in partial remission, mild Cigarette smoker Pre-op evaluation Surgical History Hx of cornea transplant Family History Mother No problems noted. Father Heart failure Hypertension High cholesterol Heart attack Brother No problems noted. Social History Household Members: Family Household Members Other:: father Housing: House Are you a primary youth care professional to a significant other at home: No Do you presently have visiting nurse or other home services: No Alcohol intake: current Alcohol intake frequency: holidays/special occasions only Patient Tobacco Use Status: Former Tobacco user Quit Date: 06/19/22 Tobacco use type: Cigarette Cigarette Packs Per Day: 0.5 Years Smoked: 20 Substance Use Type: Marijuana service: No Current occupational status: employed Assessment & Plan Assessment & Plan (1) Obesity with body mass index (BMI) of 30.0 to 39.9: Code(s): E66.9 - Obesity, unspecified Plan encouraged making sure she gets adequate nutrition.Reviewed body composition which appears favorable. F/u in a month. utilize support services as needed Coding Level of Care Code Nutr Indiv Subseq (90318) Diagnoses Obesity with body mass index (BMI) of 30.0 to 39.9 E66.9 Time Spent (min) 35
[2023-04-30 15:49] VITALS: BMI 33.3
== END 2023-05-01 10:43 | disposition home or self-care (01) ==
PROVIDERS: Visit Provider Dietitian, Registered
DX: E66.9 Obesity, unspecified (principal)

== ENCOUNTER → 2023-04-30 15:35 | Outpatient (BNVA) | payer MEDICARE, MEDICAID, SELFPAY | PROVIDERS: Visit Provider Dietitian, Registered | DX: E66.9 Obesity, unspecified (principal); Z68.33 Body mass index [BMI] 33.0-33.9, adult | CPT/HCPCS: 97803 ==

== ENCOUNTER 2023-06-03 14:44 | Outpatient (AMB) | payer MEDICARE, MEDICAID, SELFPAY ==
--- NOTE | 2023-06-03 14:32 | A.OFFVIS_ITS ---
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 Logged her food for a few days and learned how often she was mindlessly snacking. Over the course of the last few weeks we have learned she does best with lots of protein, planning ahead, and having some self monitoring tools when needed. Has started using an beatris called ate which uses pictures and emotions and prompts for emotions. really likes this way of thinking about food and identifying areas for improved nutrition. She has recently experienced some weight regain of 5# but she feels really motivated to prevent it from continuing to trend upwards. 10-11am wakes up , if waking up early, w ill do coffee with 1 tbsp cream 12:30pm shake 8oz 1% milk or skim milk with 2 scoops orgain. was previously doing 1 scoop but made her uncontrollably hungry. 3pm 3oz protein or full protein bar 7pm 3oz protein , 2oz veg 9pm protein shake Exercise: 5x in April - went to workout wih her brother last week and had a lot of fun. she is interested in finding a gym norma. Hydration: 32-64oz water Dietary counseling reduction Diagnosis Nutrition problem #1 overweight/obesity As related to (etiology) #1 excess energy intake and physical inactivity As evidenced by (sign/symptom) #1 high BMI Monitoring/Goals Nutrition problem monitoring total energy intake, level of knowledge/skill, total PRO intake, total CHO intake, weight and oral fluids Outcome progress progressing Learning/Education Readiness to learn excellent Stages of change action Most Recent Diabetes Results: Cholesterol 136 mg/dL (<200) 03/12/23 HDL Cholesterol 52 mg/dL (>40) 03/12/23 Triglycerides 68 mg/dL (<150) 03/12/23 Creatinine 0.65 mg/dL (0.5-1.4) 03/12/23 Blood Urea Nitrogen 13 mg/dL (9-16) 03/12/23 Sodium 142 mmol/L (135-145) 03/12/23 Potassium 4.2 mmol/L (3.3-5.1) 03/12/23 Chloride 109 mmol/L (96-108) H 03/12/23 Carbon Dioxide 27 mmol/L (22-29) 03/12/23 Calcium 9.7 mg/dL (8.4-10.2) 03/12/23 [facility] Medical History Depression Family history of anesthesia complication Fuchs' corneal dystrophy of both eyes Cigarette smoker Binge-eating disorder, in partial remission, mild Cigarette smoker Pre-op evaluation Surgical History Hx of cornea transplant Family History Mother No problems noted. Father Heart failure Hypertension High cholesterol Heart attack Brother No problems noted. Social History Household Members: Family Household Members Other:: father Housing: House Are you a primary anesthesiologist and critical care to a significant other at home: No Do you presently have visiting nurse or other home services: No Alcohol intake: current Alcohol intake frequency: holidays/special occasions only Patient Tobacco Use Status: Former Tobacco user Quit Date: 06/19/22 Tobacco use type: Cigarette Cigarette Packs Per Day: 0.5 Years Smoked: 20 Substance Use Type: Marijuana service: No Current occupational status: employed Assessment & Plan Assessment & Plan (1) Obesity with body mass index (BMI) of 30.0 to 39.9: Code(s): E66.9 - Obesity, unspecified Plan encouraged continuing to utilize all support systems and accountability tools. Provided gentle nutrition tips. Encouraged exercise as a form of self care and improving mental health. f/u with me 07/01 at 3:30 Telehealth Telehealth Location of provider rendering services: other (home address, [facility] ) Location of patient: address on file Patient Identification confirmed using: Name, : Yes Telehealth method: voice only Patient verbally consented to treatment: Yes Patient verbally consented to billing insurance company: Yes Patient informed of any privacy concerns related to visit: Yes Minutes spent on Phone/Video with Pt.: 30 Coding Level of Care Code Nutr Indiv Subseq (85647) Diagnoses Obesity with body mass index (BMI) of 30.0 to 39.9 E66.9 Time Spent (min) 30
[2023-06-03 15:11] VITALS: BMI 34.2
== END 2023-06-03 15:14 | disposition home or self-care (01) ==
LOC: HO.HBS 14:44
PROVIDERS: Visit Provider Dietitian, Registered
DX: E66.9 Obesity, unspecified (principal)

== ENCOUNTER → 2023-06-03 14:44 | Outpatient (BNVA) | payer MEDICARE, MEDICAID, SELFPAY | PROVIDERS: Visit Provider Dietitian, Registered | DX: E66.9 Obesity, unspecified (principal); Z68.34 Body mass index [BMI] 34.0-34.9, adult | CPT/HCPCS: 97803 ==

== ENCOUNTER 2023-07-02 14:53 | Outpatient (AMB) | payer MEDICARE, MEDICAID, SELFPAY ==
--- NOTE | 2023-07-02 15:01 | MHC.AMNUTRGE ---
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 Logged her food for a few days and learned how often she was mindlessly snacking. Over the course of the last few weeks we have learned she does best with lots of protein, planning ahead, and having some self monitoring tools when needed. Has started using an beatris called ate which uses pictures and emotions and prompts for emotions. really likes this way of thinking about food and identifying areas for improved nutrition. 10-11am wakes up , if waking up early, will do coffee with 1 tbsp cream 12:30pm shake 8oz 1% milk or skim milk with 2 scoops orgain. was previously doing 1 scoop but made her uncontrollably hungry. 3pm 3oz protein or full protein bar 7pm 3oz protein , 2oz veg 9pm protein shake Recnetly, for meals started having some premade burgers , recviewed nutrition label today and identified and explained they are high in fat, and fairly low in protein. We talked about lots of other healthy , easy meals Exercise: 5x in April - went to workout wih her brother last week and had a lot of fun. she is interested in finding a gym norma. Hydration: 32-64oz water Dietary counseling reduction Diagnosis Nutrition problem #1 overweight/obesity As related to (etiology) #1 excess energy intake and physical inactivity As evidenced by (sign/symptom) #1 high BMI Monitoring/Goals Nutrition problem monitoring total energy intake, level of knowledge/skill, total PRO intake, total CHO intake, weight and oral fluids Outcome progress progressing Learning/Education Readiness to learn excellent Stages of change action Most Recent Diabetes Results: Cholesterol 136 mg/dL (<200) 03/12/23 HDL Cholesterol 52 mg/dL (>40) 03/12/23 Triglycerides 68 mg/dL (<150) 03/12/23 Creatinine 0.65 mg/dL (0.5-1.4) 03/12/23 Blood Urea Nitrogen 13 mg/dL (9-16) 03/12/23 Sodium 142 mmol/L (135-145) 03/12/23 Potassium 4.2 mmol/L (3.3-5.1) 03/12/23 Chloride 109 mmol/L (96-108) H 03/12/23 Carbon Dioxide 27 mmol/L (22-29) 03/12/23 Calcium 9.7 mg/dL (8.4-10.2) 03/12/23 [facility] Medical History Depression Family history of anesthesia complication Fuchs' corneal dystrophy of both eyes Cigarette smoker Binge-eating disorder, in partial remission, mild Cigarette smoker Pre-op evaluation Surgical History Hx of cornea transplant Family History Mother No problems noted. Father Heart failure Hypertension High cholesterol Heart attack Brother No problems noted. Social History Household Members: Family Household Members Other:: father Housing: House Are you a primary healthcare liaison to a significant other at home: No Do you presently have visiting nurse or other home services: No Alcohol intake: current Alcohol intake frequency: holidays/special occasions only Patient Tobacco Use Status: Former Tobacco user Quit Date: 06/19/22 Tobacco use type: Cigarette Cigarette Packs Per Day: 0.5 Years Smoked: 20 Substance Use Type: Marijuana service: No Current occupational status: employed Assessment & Plan Assessment & Plan (1) Obesity with body mass index (BMI) of 30.0 to 39.9: Code(s): E66.9 - Obesity, unspecified Plan Nutrition education today and discussed some healthy meal options that are also convenient. pt to continue f/u with PA or other provider Coding Level of Care Code Nutr Indiv Subseq (76263) Diagnoses Obesity with body mass index (BMI) of 30.0 to 39.9 E66.9 Time Spent (min) 30
== END 2023-07-02 15:35 | disposition home or self-care (01) ==
PROVIDERS: Visit Provider Dietitian, Registered
DX: E66.9 Obesity, unspecified (principal)

== ENCOUNTER → 2023-07-02 14:53 | Outpatient (BNVA) | payer MEDICARE, MEDICAID, SELFPAY | PROVIDERS: Visit Provider Dietitian, Registered | DX: E66.9 Obesity, unspecified (principal); Z98.84 Bariatric surgery status | CPT/HCPCS: 97803 ==

== ENCOUNTER 2023-07-29 14:34 | Outpatient (AMB) | payer MEDICARE, MEDICAID, SELFPAY ==
--- NOTE | 2023-07-29 14:43 | MHC.NURWM ---
Intake Intake Visit Reasons: (OV) PO LSG 07/24/22 Allergies No Known Allergies Allergy (Mild, Verified 01/22/23 14:14) NONE Coding
--- NOTE | 2023-07-29 14:46 | A.OFFVIS_ITS ---
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 meal plan: noon built bar or Premier protein RTD 3pm meal 1/2 c cottage cheese, 14 gm or buit bar 7pm meal 4 oz protein, no veggies 10pm Premier protein RTD shake or powder shake (Ryse-25 gm/scoop) 1 scoop w 1 % milk Drinking 32 oz water daily Exercise: 4 x per week cardio 200-400 calories elliptical or walking. Taking celebrate MVI and graham + D Any post op complications: none GORDY: never DM: never HTN: never Hyperlipidemia: never GERD:?0-5 scale ??0 = no symptoms ??1 = symptoms noticeable but not bothersome 2 =symptoms bothersome but not daily ? 3 = symptoms bothersome and daily 4 = symptoms affect daily activities 5 = symptoms are incapacitating, unable to do daily activities ? How bad is the heartburn: 0 ? Heartburn while lying down: 0 ? Heartburn when standing up: 0 ? Heartburn after meals: 0 ? Does heartburn change your diet: 0 ? Does heartburn wake you up from sleep: 0 ? Do you have difficulty swallowin ? Do you have pain with swallowin ? If you take medicine for your reflux, does this affect your daily life: 0 Satisfaction with present condition - satisfied or not satisfied: satisfied [facility] Medical History Depression Family history of anesthesia complication Fuchs' corneal dystrophy of both eyes Cigarette smoker Binge-eating disorder, in partial remission, mild Cigarette smoker Pre-op evaluation Surgical History Hx of cornea transplant Family History Mother No problems noted. Father Heart failure Hypertension High cholesterol Heart attack Brother No problems noted. Social History Household Members: Family Household Members Other:: father Housing: House Are you a primary healthcare insurance sales agent to a significant other at home: No Do you presently have visiting nurse or other home services: No Alcohol intake: current Alcohol intake frequency: holidays/special occasions only Patient Tobacco Use Status: Former Tobacco user Quit Date: 06/19/22 Tobacco use type: Cigarette Cigarette Packs Per Day: 0.5 Years Smoked: 20 Substance Use Type: Marijuana service: No Current occupational status: employed Review of Systems Const All systems reviewed & are unremarkable except as noted in HPI and below Physical Exam Vital Signs: Last Vital Signs Temp 98.6 F 07/29/23 14:52 Pulse 73 07/29/23 14:52 BP 138/87 07/29/23 14:52 Pulse Ox 98 07/29/23 14:52 Oxygen Delivery Method Room Air 07/29/23 14:52 BMI result Body Mass Index 32.4 Const General: cooperative and no acute distress Orientation/consciousness: patient oriented x3 Resp Effort & Inspection: normal respiratory effort Auscultation: clear to auscultation bilaterally Cardio Rate: regular rate Rhythm: regular rhythm GI Inspection: Yes normal to inspection and Yes incision (well healed) Palpation (GI): Soft to palpation and no masses Neuro General: patient oriented x3 Assessment & Plan Assessment & Plan (1) Status post sleeve gastrectomy: Code(s): Z90.3 - Acquired absence of stomach [part of] Plan: Overall, patient has done exceptionally well. She is lost over 100 lb since beginning the program. We will change her meal plans slightly to help her achieve her stated goal of 150 lb. Noon: Built bar 3pm: Built bar 7pm: Meal 3 oz protein and 3 oz veggies 10 pm RYSE protein shake 1 scoop in 8 oz unsweetened almond milk or 26 g ready to drink fair life shake. increase water to 48-64 oz Orders: Orders Insulin Today E66.9 - Obesity, unspecified, Z90.3 - Acquired absence of stomach [part of] Lipid Panel Today E66.9 - Obesity, unspecified, Z90.3 - Acquired absence of stomach [part of] Zinc Today E66.9 - Obesity, unspecified, Z90.3 - Acquired absence of stomach [part of] C Reactive Protein Today E66.9 - Obesity, unspecified, Z90.3 - Acquired absence of stomach [part of] Vitamin A Today E66.9 - Obesity, unspecified, Z90.3 - Acquired absence of stomach [part of] Basic Metabolic Panel Today E66.9 - Obesity, unspecified, Z90.3 - Acquired absence of stomach [part of] Hemoglobin A1c Today E66.9 - Obesity, unspecified, Z90.3 - Acquired absence of stomach [part of] Complete Blood Count Auto Diff Today E66.9 - Obesity, unspecified, Z90.3 - Acquired absence of stomach [part of] IRON PROFILE Today E66.9 - Obesity, unspecified, Z90.3 - Acquired absence of stomach [part of] Vitamin B12 and Folate Today E66.9 - Obesity, unspecified, Z90.3 - Acquired absence of stomach [part of] Vitamin B1 Today E66.9 - Obesity, unspecified, Z90.3 - Acquired absence of stomach [part of] TSH reflex Free T4 Today E66.9 - Obesity, unspecified, Z90.3 - Acquired absence of stomach [part of] Ferritin Today E66.9 - Obesity, unspecified, Z90.3 - Acquired absence of stomach [part of] Vitamin D 25-OH Total Today E66.9 - Obesity, unspecified, Z90.3 - Acquired absence of stomach [part of] Coding Level of Care Code Est Pt Level 4 (84743) Diagnoses Status post sleeve gastrectomy Z90.3 Time Spent (min) 40
[2023-07-29 14:52] VITALS: BP 138/87; PULSE 73; TEMP 37; O2SAT 98; BMI 32.4
== END 2023-07-29 15:24 | disposition home or self-care (01) ==
PROVIDERS: Visit Provider Physician Assistant Surgical
DX: E66.9 Obesity, unspecified (principal); Z68.32 Body mass index [BMI] 32.0-32.9, adult; Z90.3 Acquired absence of stomach [part of]; Z98.84 Bariatric surgery status
CPT/HCPCS: 99214

== ENCOUNTER → 2023-07-29 14:34 | Outpatient (BNVA) | payer MEDICARE, MEDICAID, SELFPAY | PROVIDERS: Visit Provider Physician Assistant Surgical | DX: Z90.3 Acquired absence of stomach [part of] (principal) | CPT/HCPCS: 99212 ==

== ENCOUNTER 2023-09-30 12:21 | Outpatient (AMB) | payer MEDICARE, MEDICAID, SELFPAY ==
--- NOTE | 2023-09-30 11:53 | A.OFFVIS_ITS ---
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 She has had an approximate 5 pound weight gain since her last appointment 2 months ago. She states that she thinks it is because lack of exercise and increased appetite and not drinking enough water. She states she has been doing 2 built bars, food randomly and not measured and then a [employer] shake and than snacking on cookies or chips. meal plan: Noon: Built bar 3pm: Built bar 7pm: Meal 3 oz protein and 3 oz veggies 10 pm RYSE protein shake 1 scoop in 8 oz unsweetened almond milk or 26 g ready to drink [employer] shake. Drinking 16 oz water daily Exercise: 1 time in the last 3 weeks. [employer] 30 min cardio. previously walking outside or hospital gym. Taking celebrate MVI and graham + D PFSH Medical History Depression Family history of anesthesia complication Fuchs' corneal dystrophy of both eyes Cigarette smoker Binge-eating disorder, in partial remission, mild Cigarette smoker Pre-op evaluation Surgical History Hx of cornea transplant Family History Mother No problems noted. Father Heart failure Hypertension High cholesterol Heart attack Brother No problems noted. Social History Household Members: Family Household Members Other:: father Housing: House Are you a primary care connector to a significant other at home: No Do you presently have visiting nurse or other home services: No Alcohol intake: current Alcohol intake frequency: holidays/special occasions only Patient Tobacco Use Status: Former Tobacco user Tobacco use type: Cigarette Cigarette Packs Per Day: 0.5 Years Smoked: 20 Substance Use Type: Marijuana service: No Current occupational status: employed Telehealth Telehealth Telehealth Platform: Telephone Location of provider rendering services: practice address Location of patient: other Patient Identification confirmed using: Name, : Yes Telehealth method: voice only Patient verbally consented to treatment: Yes Patient verbally consented to billing insurance company: Yes Patient informed of any privacy concerns related to visit: Yes Minutes spent on Phone/Video with Pt.: 15 Assessment & Plan Assessment & Plan (1) Obesity with body mass index (BMI) of 30.0 to 39.9: Code(s): E66.9 - Obesity, unspecified Category: Medical Plan: Discussed the importance of purpose fullness, consistency and discipline. She will measure her food by forks. She will follow the meal plan exactly. She may substitute a fair life 26 g ready to drink shake as needed instead of the powdered shake while at work. She will resume exercise with a goal of burning 300 calories per day. We will have her return to the office in 1 month. Additionally, encouraged her to weigh weekly on Tuesdays and send me her weight measurements.
[2023-09-30 11:55] VITALS: BMI 33.4
== END 2023-09-30 12:34 | disposition home or self-care (01) ==
LOC: HO.HBS 12:21
PROVIDERS: Visit Provider Physician Assistant Surgical
DX: E66.9 Obesity, unspecified (principal); Z68.33 Body mass index [BMI] 33.0-33.9, adult
CPT/HCPCS: 99442

== ENCOUNTER → 2023-09-30 12:21 | Outpatient (BNVA) | payer MEDICARE, MEDICAID, SELFPAY | PROVIDERS: Visit Provider Physician Assistant Surgical | DX: E66.9 Obesity, unspecified (principal); Z90.3 Acquired absence of stomach [part of] ==

== ENCOUNTER → 2024-03-01 21:25 | Outpatient (BNV) | payer MEDICARE, MEDICAID, SELFPAY | PROVIDERS: Emergency Provider Emergency Medicine; Visit Provider Internal Medicine Cardiovascular Disease | DX: R07.9 Chest pain, unspecified (principal) | CPT/HCPCS: 93010 ==

== ENCOUNTER 2024-03-01 21:28 | Emergency (ER) | payer MEDICARE, MEDICAID, SELFPAY ==
--- NOTE | 2024-03-01 | ECG_ITS ---
Test Reason : cp Blood Pressure : / mmHG Vent. Rate : 071 BPM Atrial Rate : 071 BPM P-R Int : 146 ms QRS Dur : 096 ms QT Int : 366 ms P-R-T Axes : 037 030 024 degrees QTc Int : 397 ms Normal sinus rhythm Normal ECG When compared with ECG of 04-APR-2022 14:50, No significant change was found Referred By: Generic ED Physician Electronically Signed By:Heath Vargas
--- NOTE | ~2024-03-01 | XR_ITS ---
EXAMINATION: XR CHEST CLINICAL INFORMATION: Chest tightness COMPARISON: Chest radiograph 04/04/2022 TECHNIQUE: Frontal view of the chest was obtained. FINDINGS: Normal appearance of the cardiomediastinal structures. The pleura no focal pulmonary consolidation. Normal pattern of pulmonary vasculature. Suture material projected over the left upper abdominal quadrant. Minimal convex rightward curvature of the thoracic spine. XR/XR chest 1V IMPRESSION: No acute cardiopulmonary abnormalities. Electronically signed by: Jamal Wong MD 03/02/2024 05:17 AM HARSHA JOHNSON
[2024-03-01 21:38] VITALS: BP 138/74; PULSE 71; RESP 18; TEMP 36.8; O2SAT 100; BMI 34.5
[2024-03-01 21:48] LABS: MANUAL DIFF FLAG NO
[2024-03-01 21:49] LABS: Basophils Absolute Auto 0.1 X10*3/uL (0.0-0.2); Basophils Percent Auto 0.6 % (0-2); Eosinophils Absolute Auto 0.1 X10*3/uL (0.0-0.4); Eosinophils Percent Auto 1.1 % (0-4); Hematocrit 42.4 % (37.0-47.0); Imm Gran Abs Auto 0.02 X10*3/uL (0.00-0.03); Imm Gran Pct Auto 0.2 % (0.0-0.4); Lymphocytes Absolute Auto 2.3 X10*3/uL (1.2-4.9); Mean Corpuscular Hemoglobin 29.3 pg (27.0-33.0); Mean Corpuscular Volume 88.7 fL (80.0-98.0); Mean Platelet Volume 8.9 fL (9.4-12.3); Monocytes Absolute Auto 0.6 X10*3/uL (0.1-1.2); Monocytes Percent Auto 7.4 % (2-11); Neutrophils Absolute Auto 5.4 x10*3/uL (2.0-8.3); Neutrophils Percent Auto 63.7 % (45-73); Platelet Count 266 X10*3/uL (160-400); Red Blood Count 4.78 X10*6/uL (4.20-5.50); Red Cell Distribution Width 12.4 % (11.0-16.0); White Blood Count 8.4 X10*3/uL (4.8-10.8)
[2024-03-01 22:04] LABS: Alanine Aminotransferase 18 U/L (0-31); Albumin Level 4.7 g/dL (3.5-5.0); Alkaline Phosphatase 82 U/L (39-117); Anion Gap 15 (12-20); Aspartate Amino Transferase 27 U/L (5-31); Bilirubin Total 0.6 mg/dL (0.0-1.0); Blood Urea Nitrogen 14 mg/dL (9-16); Calcium 9.8 mg/dL (8.4-10.2); Carbon Dioxide 22 mmol/L (22-29); Chloride 109 mmol/L (96-108); Creatinine Clr Calc Pharmacy 118.8; Estimated Glomerular Filt Rate > 60; Glucose Random 93 mg/dL (60-115); Potassium 3.8 mmol/L (3.3-5.1); Sodium 142 mmol/L (135-145); Total Protein 7.6 g/dL (6.5-8.0)
[2024-03-01 22:12] LABS: Troponin-I High Sensitivity < 2.7 ng/L (<3.5-17.0)
[2024-03-01 22:28] LABS: Influenza A PCR NEGATIVE (Negative); Influenza B PCR NEGATIVE (Negative); Resp Syncy Virus RNA Qual PCR NEGATIVE (Negative); SARS COV2 PCR INHOUSE NEGATIVE (Negative)
[2024-03-02 03:55] VITALS: BP 152/89; PULSE 80; RESP 18; O2SAT 98
[2024-03-02 05:58] VITALS: BP 150/80; PULSE 78; RESP 18; O2SAT 99
[2024-03-02 06:03] VITALS: BP 151/81; PULSE 61; RESP 16; TEMP 37; O2SAT 100
--- NOTE | 2024-03-02 06:06 | ED_ITS ---
HPI - Chest Pain General Chief Complaint: Chest Pain Stated Complaint: chest tightness Time Seen by Provider: 03/02/24 05:49 Source: patient and old records reviewed Mode of arrival: ambulatory Limitations: no limitations History of Present Illness ED Provider: MERLE SIMS narrative: 33 yo female with PMH of depression, anxiety, s/p sleeve gastrectomy, uses nexplanon reports early fam hx of CAD but she does not have known CAD she notes she was with her partner last night and they were laughing no trauma but then reported a dry cough, and pain across both lower rib cages radiating to the back. She reports it hurts to move and walk. She has never had anything like this and over the past couple of days has had heartburn and is taking tums. She denies fevers, abdominal pain, n/v, she notes it is persistent. MD complaint: chest pain Onset (ago): day(s) (1) Timing of current episode: constant Prior episodes: No Onset: during rest and during exertion Pain location: substernal, left chest and right chest Pain radiation: back Severity: moderate Quality: tightness Relieving factors: nothing Exacerbating factors: movement Associated symptoms: dyspnea Treatment prior to arrival: none Related Data Home Medications ?Medication ?Instructions ?Recorded ?Confirmed Nexplanon subcut 09/30/23 09/30/23 celebrate MVI PO DAILY 09/30/23 09/30/23 Previous Rx's ?Medication ?Instructions ?Recorded cyclobenzaprine 5 mg tablet 5 mg PO BID PRN muscle spasm #20 03/02/24 tabs Allergies Allergy/AdvReac Type Severity Reaction Status Date / Time No Known Allergies Allergy Mild NONE Verified 03/01/24 21:39 Review of Systems 2 Review of Systems: Constitutional : No Weight loss, No Fever, No Chills ENT/Mouth : No sore throat, No Rhinorrhea Eyes: No Eye Pain, No Swelling Cardiovascular : pos Chest Pain, pos SOB, no Dyspnea on Exertion, No Orthopnea, No Edema, No Palpitations Respiratory : No Cough, No Sputum Gastrointestinal : no Nausea, No Vomiting, No Diarrhea, No abdominal Pain, No Hematochezia, No Melena Genitourinary : No Dysuria, No Urinary Frequency Musculoskeletal : No joint pain, No Myalgias, No Joint Swelling Skin : No Skin Lesions, No rash Neuro : No Weakness, No Numbness, No Dizziness, No Headache All other systems reviewed and are negative [facility] Past Medical History Attestation statement: The following information was validated with the patient. Source: old records reviewed Medical History Depression Family history of anesthesia complication Fuchs' corneal dystrophy of both eyes Cigarette smoker Binge-eating disorder, in partial remission, mild Cigarette smoker Pre-op evaluation Surgical History Hx of cornea transplant Family History Family History Mother No problems noted. Father Heart failure Hypertension High cholesterol Heart attack Brother No problems noted. Social History Social History Household Members: Family Household Members Other:: father Housing: House Are you a primary health care administrator to a significant other at home: No Do you presently have visiting nurse or other home services: No Alcohol intake: current Alcohol intake frequency: holidays/special occasions only Patient Tobacco Use Status: Former Tobacco user Tobacco use type: Cigarette Cigarette Packs Per Day: 0.5 Years Smoked: 20 Smoked in Last 30 Days: Yes Use of substances other than those prescribed or required for medical reasons: Yes Substance Use Type: Marijuana Substance Use Frequency: Occasionally Advance Directives: No Advance Directives Information Provided: No Do you have a plan to hurt others: No Plan Patient : No service: No Current occupational status: employed Physical Exam 2 Vital Signs: Vital Signs: Last Vital Signs Temp 98.6 F 03/02/24 06:03 Pulse 61 03/02/24 06:03 Resp 16 03/02/24 06:03 BP 151/81 H 03/02/24 06:03 Pulse Ox 100 03/02/24 06:03 O2 Del Method Room Air 03/02/24 06:03 BMI result Body Mass Index 34.5 Appearance: Alert. Oriented X3. No acute distress. Eyes: Pupils equal, round and reactive to light. ENT: Pharynx normal. Neck: Normal inspection. Neck supple. CVS: Normal heart rate and rhythm. Pulses normal. Chest: ttp along costochondral border - reproduces pain particularly upper sternal border Respiratory: No respiratory distress. Breath sounds normal. Abdomen: Soft and nontender. Skin: Skin warm and dry. Normal skin color. Normal skin turgor. Extremities: No lower extremity edema. No calf ttp Neuro: Oriented X 3. No motor deficit. No sensory deficit. Medical Decision Making Medical Decision Making [facility] Narrative: 33 yo female with PMH of depression, anxiety, s/p sleeve gastrectomy, uses nexplanon here with c/o chest pain after laughing with spouse. Somewhat unusual does reports nexplanon use and fam hx of ACS - at this time no EKG findings to suggest pericarditis, distal pulses symmetric doubt dissection will obtain basic labs, trop x 2, ddimer, EKG and CXR Differential Diagnosis Differential Diagnoses: The differential diagnosis associated with the presentation includes atypical chest pain, rib strain, VTE no EKG changes to suggest pericarditis Admission/Observation Consideration of admission/observation: Escalation of care including admission/observation considered Lab Data [facility] Lab Attestation statement: I reviewed the patient's lab results. 03/01/24 21:43 03/01/24 21:43 Labs: Lab Results 03/01/24 03/02/24 Range/Units 21:43 06:12 WBC 8.4 (4.8-10.8) X10*3/uL RBC 4.78 (4.20-5.50) X10*6/uL Hgb 14.0 (12.0-16.0) g/dl Hct 42.4 (37.0-47.0) % MCV 88.7 (80.0-98.0) fL MCH 29.3 (27.0-33.0) pg MCHC 33.0 (31.0-35.0) g/dl RDW 12.4 (11.0-16.0) % Plt Count 266 (160-400) X10*3/uL MPV 8.9 L (9.4-12.3) fL Immature Gran % (Auto) 0.2 (0.0-0.4) % Neut % (Auto) 63.7 (45-73) % Lymph % (Auto) 27.0 (20-40) % [place] % (Auto) 7.4 (2-11) % Eos % (Auto) 1.1 (0-4) % Baso % (Auto) 0.6 (0-2) % Lymph # (Auto) 2.3 (1.2-4.9) X10*3/uL [place] # (Auto) 0.6 (0.1-1.2) X10*3/uL Eos # (Auto) 0.1 (0.0-0.4) X10*3/uL Baso # (Auto) 0.1 (0.0-0.2) X10*3/uL Abs Immat Gran (auto) 0.02 (0.00-0.03) X10*3/uL Absolute Neuts (auto) 5.4 (2.0-8.3) x10*3/uL Absolute Nucleated RBC 0.000 (0.0-0.012) X10*3/uL Nucleated RBC % (auto) 0.0 (0.0-0.2) /100WBC D-Dimer High Sensitivty < 150 NG/ML Sodium 142 (135-145) mmol/L Potassium 3.8 (3.3-5.1) mmol/L Chloride 109 H (96-108) mmol/L Carbon Dioxide 22 (22-29) mmol/L Anion Gap 15 (12-20) BUN 14 (9-16) mg/dL Creatinine 0.71 (0.5-1.4) mg/dL Estim Creat Clear Calc 118.8 Estimated GFR > 60 Random Glucose 93 (60-115) mg/dL Calcium 9.8 (8.4-10.2) mg/dL Total Bilirubin 0.6 (0.0-1.0) mg/dL AST 27 (5-31) U/L ALT 18 (0-31) U/L Alkaline Phosphatase 82 (39-117) U/L Troponin I High Sens < 2.7 < 2.7 (<3.5-17.0) ng/L Total Protein 7.6 (6.5-8.0) g/dL Albumin 4.7 (3.5-5.0) g/dL Lipase 36 (8-78) U/L Influenza Type A (PCR) NEGATIVE (Negative) Influenza Type B (PCR) NEGATIVE (Negative) RSV RNA Qual (PCR) NEGATIVE (Negative) SARS-CoV-2 RNA (RT-PCR) NEGATIVE (Negative) Independent Interpretation I performed an independent interpretation of an: EKG and Plain X-Ray (normal) Interpretation: Rate: 971 Rhythm: NSR Hancock: normal Normal P waves. Normal ADELAIDA. Normal QRS complex. ST T wave : normal no MARTINE, inverted t wave V1 qTC: 397 prior studies: no acute ischemia The study has been interpreted contemporaneously by me. . Radiology Impression Discussion of test interpretation with radiology: I have reviewed the radiologist's reading. External Record Review External record reviewed: Outpatient record Discharge Plan Discharge Clinical Impression: Atypical chest pain, Acute costochondritis Patient Disposition: Home, Self-Care Instructions: Chest Pain (ED), Costochondritis (ED) Additional Instructions: labs reassuring chest xray normal troponin test negative x 2, ddimer negative EKG nonischemic at this time follow up with your doctor for furthet testing such as ECHO or stress cori return for any worsening symptoms or concerns. Prescriptions: New cyclobenzaprine 5 mg tablet 5 mg PO BID PRN (Reason: muscle spasm) Qty: 20 0RF No Action celebrate MVI PO DAILY Nexplanon subcut Stand Alone Forms: Work/School Release Print Language: Pashto
[2024-03-02 06:13] LABS: Lipase 36 U/L (8-78)
[2024-03-02 06:31] LABS: D Dimer High Sensitivity < 150 NG/ML
[2024-03-02 06:42] LABS: Troponin-I High Sensitivity < 2.7 ng/L (<3.5-17.0)
[2024-03-02 07:33] VITALS: BP 151/81; PULSE 61; RESP 16; TEMP 37; O2SAT 100
== END 2024-03-02 07:34 | disposition home or self-care (01) ==
PROVIDERS: Emergency Provider Emergency Medicine
DX: M94.0 Chondrocostal junction syndrome [Tietze] (principal); R07.89 Other chest pain; R05.9 Cough, unspecified; J44.9 Chronic obstructive pulmonary disease, unspecified; Z79.899 Other long term (current) drug therapy; Z03.818 Encounter for observation for suspected exposure to other biological agents ruled out
CPT/HCPCS: 0241U; 36415; 71045; 80053; 83690; 84484; 85025; 85379; 93005; 99283; 99285

== ENCOUNTER 2024-08-17 23:02 | Emergency (ER) | payer MEDICARE, MEDICAID, SELFPAY ==
[2024-08-17 23:05] VITALS: BP 143/58; PULSE 73; RESP 20; TEMP 37.1; O2SAT 99; BMI 37.2
[2024-08-17 23:31] LABS: Appearance Urine Clear; Color Urine Dark Yellow; Glucose Urine UA Negative (Negative); Leukocyte Esterase Urine Moderate (2+) (Negative); Nitrite Urine Positive (Negative); PH 5.5 (5.0-9.0); Specific Gravity - Urine >= 1.030 (1.005-1.025); UMIC TRIGGER UACC YES; Urine Blood Moderate (2+) (Negative); Urine Ketones Negative (Negative); Urine Protein 30 (1+) mg/dL (Neg-Trace)
[2024-08-17 23:33] LABS: Bacteria Urine 1+ (None Seen); Hyaline Casts Urine 0-2 /LPF (0-2); RBC Urine >20 /HPF (0-2); UACC Culture Trigger YES; WBC Urine >50 /HPF (0-5)
--- OUTSIDE RECORDS SUMMARY | 2024-08-17 23:44 | XMS_ITS | Clinical Summary ---
Author Organization [facility] [address] [place] [address] [place] [phone] Phone Care Team Providers Care Manager Welding Name Role Phone Jeri Patel MD Primary Care Provider [phone] Allergies No known active allergies Medications etonogestrel-eluti ng contraceptive device (Nexplanon) 68 mg implant subdermal implant Inject 68 mg into the skin Once. 4 Active prednisoLONE acetate (PRED FORTE) 1 % ophthalmic suspension PLACE 1 DROP IN RIGHT EYE DAILY 8 Active MULTIVITAMIN WITH IRON ORAL Multiple Vitamins-Mine rals (Bariatric Multivitamins /Iron) Cap Take by mouth. Active Active Problems Problem Noted Date Diagnosed Date ADHD (attention deficit hyperactivity disorder) 04/09/2024 Overview (04/09/2024): IMO update Irregular menses 03/12/2018 Multiple joint pain 08/05/2017 Bipolar 2 disorder (CMS/HCC V24, CMS/HCC V28) Overview (04/09/2024): Pt reports this may have been a misdiagnosis as a teenager; current diagnosis is depression and anxiety Numerous moles 09/05/2015 Fuchs' corneal dystrophy 12/30/2013 Tobacco use disorder 06/21/2009 Depressive disorder 04/28/2006 Overview (04/09/2024): S/P overdose (prozac) - in partial hospitalization program as of 08/22/07, SEEN BY CARLIN TURNER, [facility] PHONE: [phone] FAX: [phone] . Home 09/01/07 on trileptal, seroquel and trazodone Encounters Date Type Department Care Team Description 06/01/2024 2:00 PM EST Office Visit Adult [address] [phone] Zheng Orozco PA Depressive disorder (Primary Dx); Vaping nicotine dependence, tobacco product from Last 3 Months Immunizations Name Administration Dates Next Due DTP 11/10/1991, 1,1990,1990 DTaP (Infanrix) 6wks to less than 7yo 04/28/1996 LQeA-SSC-WPV (Pentacel) 2mo to less than 5yo 09/21/1991,03/24/1991,1990,1990 HPV, Quadrivalent 06/22/2007,12/12/2006,10/09/19 07 Hepatitis B Pediatric (Enger ix B; Recombivax HB) to less than 20 yo 03/01/1998,05/28/1996,05/03/1996 MMR, measles mumps and rubel la Live (Priorix; M-M-R II) 12mo and older 05/28/1996,09/21/1991 Moderna SARS-CoV-2 COVID-19, mRNA, LNP-S, preservative free 04/18/2021,06/16/2020,05/19/2020 OPV 04/28/1996, 2,1990,1990 Td Tetanus diptheria (Tdvax) 7yo and older 10/10/2003,09/27/2002,08/24/2001 Tdap Tetanus diptheria acell ular pertussis (Boostrix; Adacel) 7yo and older 06/27/2014 Surgical History Surgery Date Site/Laterality Comments OTHER SURGICAL HISTORY PROCEDURE: [place] EPIKERATOPLASTY; COMMENT: 2006; 2011; 2013 Medical History Medical History Date Comments Bipolar affective disorder ( CMS/[facility] V24, CMS/[facility] V28) DX:Bipolar affective disorde r (HCC) Depressive disorder, not els ewhere classified 04/28/2006 DX:Depressive disorder, not elsewhere classified; COMMENT: S/P overdose (prozac) - in partial hospitalization program as of 08/22/07, SEEN BY CARLIN TURNER, [facility] PHONE: [phone] FAX: [phone] . Home 09/01/07 on trileptal, seroquel and trazodone Historical Medical DX DX:ADD (at tention deficit disorder with hyperactivity) Bipolar 2 disorder ([facility] V24, [facility] V28) 09/05/2015 DX:Bipolar 2 disorder ([facility]); COMMENT: No longer seeing any therapist or psychiatry Family History Medical History Relation Name Comments Breast cancer Aunt 1 maternal Hypertension Father chol,cad, stent s, brain tumor - ?benign Prostate cancer Maternal Grandfather Breast cancer Maternal Grandmother Lung cancer Paternal Grandfather and alz eheimer's Ovarian cancer Sister 1 had total hys terectomy Colon cancer Neg Hx Uterine cancer Neg Hx Relation Name Status Comments Aunt 1 Aunt 2 Alive breast cancer a t 60's Aunt 3 CVA Brother Alive healthy Father Alive HTN, bipolar d/ o, OR x 3 first age in 40's, CVA in 50's Maternal Grandfather Alive prostat e cancer Maternal Grandmother breast cancer at 85 Mother Alive healthy Paternal Grandfather OR at 5 0's Paternal Grandmother DM Sister 1 Alive Sister 2 Alive x 2 each gall b ladder disaese Social History Tobacco Use Types Packs/Day Years Used Date Smoking Tobacco: Former Cigarettes Q uit: 06/19/2022 Smokeless Tobacco: Never Tobacco Cessation:Counseling Given: Not Answered Alcohol Use Standard Drinks/Week Comments Yes 0 (1 standard drink = 0.6 oz pur e alcohol) Housing Instability Answer Date Recorde d Are you worried that in the next 2 months you may not have stable housing? Yes 05/31/2024 Food Access & Nutrition Answer Date Rec orded Do you have access to a vari ety of food including fruits and vegetables? Yes 05/31/2024 Access to Healthcare Answer Date Record ed Within the last 3 months, ho w many times did you visit the emergency department for your medical care? 2 05/31/2024 Health Literacy Answer Date Recorded How often do you need to hav e someone help you when you read instructions, pamphlets, or other written material from your doctor or pharmacy? Never 05/31/2024 Caregiver: How often do you need to have someone help you when you read instructions, pamphlets, or other written material from your doctor or pharmacy? Not on file 05/31/2024 Financial Risk Answer Date Recorded How hard is it for you to pa y for the very basics like food, housing, medical care, and air conditioning / heating? Hard 05/31/2024 Transportation Answer Date Recorded Has the lack of transportati on kept you from meetings, work, or from getting things needed for daily living? No Has the lack of transportati on kept you from medical appointments or from getting medications? No 05/31/2024 Social Isolation Answer Date Recorded How often do you feel lonely or isolated from those around you? Sometimes 05/31/2024 Food Risk Answer Date Recorded Within the past 12 months we worried whether our food would run out before we got money to buy more. Never true 05/31/2024 Within the past 12 months th e food we bought just didn't last and we didn't have money to get more. Never true 05/31/2024 Dependent Care Answer Date Recorded Do you need help finding or paying for care for your loved ones. For example, childbirth educator or elderly care for an older adult? Patient declined 05/31/2024 Education Answer Date Recorded Do you think completing more education or training, like finishing a GED, going to college, or learning a trade, would be helpful for you? Yes 05/31/2024 Employment and Income Answer Date Recor ded During the last four weeks, have you been actively looking for work? No 05/31/2024 Living Situation Answer Date Recorded What is your living situation? 0 05/31/2024 Comments Unknown Sex and Gender Information Value Date Recorded Sex Assigned at Not on file Legal Sex Female 4:33 PM EST Gender Identity Not on file Sexual Orientation Not on file Obstetrics History Last Filed Vital Signs Vital Sign Reading Time Taken Comments Blood Pressure 108/70 06/01/2024 1:59 PM EST Pulse 80 06/01/2024 1:59 PM EST Temperature 36.7 ??C (98 ??F) 06/01/2024 1:59 PM EST Respiratory Rate 14 06/01/2024 1:59 PM EST Oxygen Saturation - - Inhaled Oxygen Concentration - - Weight 93.6 kg (206 lb 4.8 oz) 06/01/2024 1:59 P M EST Height 160 cm (5' 3 ) 06/01/2024 1:59 PM EST Body Mass Index 36.54 06/01/2024 1:59 PM EST Plan of Treatment Upcoming Encounters Date Type Department Care Team (Late st Contact Info) Description 09/29/2024 1:15 PM EDT Office Visit Adult Medicine [facility] [address] [place] [phone] Jeri Patel MD [address] [place] [phone] Health Maintenance Due Date Last Done Comments Pneumococcal Vaccine: Pediatrics (0 to 5 Years) and At-Risk Patients (6 to 64 Years) (1 of 2 - PCV) 2009 HIV Screening 03/20/2022 Medicare Annual Wellness Visit 03/20/2022 Cholesterol Screening (Lipid Panel) 08/05/2022 08/05/2017 COVID-19 Vaccine ( season) 2023 04/18/2021, 06/16/2020, 05/19/2020 DTaP,Tdap,and Td Vaccines (10 - Td or Tdap) 06/27/2024 06/27/2014, 10/10/2003, 09/27/2002, Additional history exists Influenza Vaccine (Season Ended) 2024 12/04/2017 Depression Screening 05/31/2025 05/31/2024 Social Influencers of Health Screening 05/31/2025 05/31/2024 Cervical Cancer Screening: HPV 05/09/2028 05/09/2023 HIB Vaccines Completed 09/21/1991, 07/1990, 1990, Additional history exists IPV Vaccines Completed 04/28/1996, 10/20, 09/21/1991, Additional history exists MMR Vaccines Completed 05/28/1996, 09/21/1991 Hepatitis B Vaccines Completed 03/01/1998, 05/28/1996, 05/03/1996 HPV Vaccines Completed 06/22/2007, 11/20, 10/08/2006 Hepatitis C Screening Completed 06/21/2008 Hepatitis A Vaccines Aged Out No long er eligible based on patient's age to complete this topic Meningococcal ACWY Vaccine Aged Out N o longer eligible based on patient's age to complete this topic Meningococcal B Vaccine Aged Out No l onger eligible based on patient's age to complete this topic RSV Immunization Patients Under 20 months Aged Out No longer eligible based on patient's age to complete this topic Varicella Vaccines Aged Out No longer eligible based on patient's age to complete this topic Procedures Procedure Name Priority Date/Time Associated Diagnosis Comments HPV Routine 05/09/2023 LIPID PANEL Routine 08/05/2017 HEPATITIS C SCREENING Routine 06/21/2008 from Last 3 Months or Most Recently Relevant to Health Maintenance Results * Cervical Cancer Screening: HPV (05/09/2023) [facility] Cervical Cancer Screening: HPV negative, abstracted [facility] Provider HEALTH MAINTENANCE Final Result * Lipid panel (08/05/2017) [facility] LDL/HDL Ratio 3 0 - 4 Triglycerides 132 0 - 150 mg/dL Cholesterol 126 0 - 200 mg/dL HDL 40 >=40 mg/dL LDL Cholesterol 60 0 - 100 mg/dL Blood Venous blood specimen / Unknown [facility] Provider LAB BLOOD ORDERABLES Radha l Result * Hepatitis C Screening (06/21/2008) [facility] Hepatitis C Screening abstracted [facility] Provider HEALTH MAINTENANCE Final Result from Last 3 Months or Most Recently Relevant to Health Maintenance Insurance MEDICARE [place]ICAID - [place] Care Teams Manager Welding Relationship Specialty Start Date End Date Jeri Patel MD [address] [place] [id number] PCP - General Internal Medicine 05/21/24
--- NOTE | 2024-08-18 00:13 | ED.FEMALEGU ---
HPI - Female Genitourinary General Chief complaint: Urogenital-Female Stated complaint: UTI Time Seen by Provider: 08/18/24 00:08 Source: patient Mode of arrival: ambulatory Limitations: no limitations History of Present Illness ED Provider: Dr. Abida Crews HPI Narrative: patient comes to the emergency room complaining of dysuria that started today. Patient states that prior to arriving to the emergency room, she was given a dose of phenazopyridine and it help with the frequency quite a bit but she is still having dysuria. Patient denies fever chills, denies significant abdominal pain, denies flank pain. Patient states that she can feel her bladder spasming. Related Data Home Medications ?Medication ?Instructions ?Recorded ?Confirmed Nexplanon subcut 09/30/23 09/30/23 celebrate MVI PO DAILY 09/30/23 09/30/23 Previous Rx's ?Medication ?Instructions ?Recorded cyclobenzaprine 5 mg tablet 5 mg PO BID PRN muscle spasm #20 03/02/24 tabs phenazopyridine 100 mg tablet 100 mg PO TID #5 tabs 08/18/24 sulfamethoxazole 800 1 tab PO BID #5 tabs 08/18/24 mg-trimethoprim 160 mg tablet (Bactrim DS) Allergies Allergy/AdvReac Type Severity Reaction Status Date / Time No Known Allergies Allergy Mild NONE Verified 08/17/24 23:06 Review of Systems Review of Systems: Constitutional : No Weight loss, No Fever, No Chills, No Night Sweats, No Fatigue, No Malaise ENT/Mouth : No Hearing loss, No Ear Pain, No Nasal Congestion, No Sinus Pain, No Hoarseness, No sore throat, No Rhinorrhea, No Swallowing Difficulty Eyes: No Eye Pain, No Swelling, No Redness, No Foreign Body, No Discharge, No Vision Changes Cardiovascular : No Chest Pain, No SOB, No Dyspnea on Exertion, No Orthopnea, No Edema, No Palpitations Respiratory : No Cough, No Sputum, No Wheezing, No Smoke Exposure, No Dyspnea Gastrointestinal : No Nausea, No Vomiting, No Diarrhea, No Constipation, No abdominal Pain, No Hematochezia, No Melena Genitourinary : no irregular bleeding, Complaining of dysuria, frequency, denies hematuria, denies flank pain Musculoskeletal : No joint pain, No Myalgias, No Joint Swelling Skin : No Skin Lesions, No rash Neuro : No Weakness, No Numbness, No Paresthesias, No Loss of Consciousness, No Dizziness, No Headache Psych : No Anxiety/Panic, No Depression, No SI/HI/AH/VH, No Social Issues, Heme/Lymph: No Bruising, No Bleeding,No Lymphadenopathy Endocrine : No Polyuria, No Polydipsia, No Temperature Intolerance PMFSH Past Medical History Medical History Depression Family history of anesthesia complication Fuchs' corneal dystrophy of both eyes Cigarette smoker Binge-eating disorder, in partial remission, mild Cigarette smoker Pre-op evaluation Surgical History Hx of cornea transplant Family History Family History Mother No problems noted. Father Heart failure Hypertension High cholesterol Heart attack Brother No problems noted. Social History Social History Household Members: Family Household Members Other:: father Housing: House Are you a primary career representative to a significant other at home: No Do you presently have visiting nurse or other home services: No Alcohol intake: current Alcohol intake frequency: holidays/special occasions only Patient Tobacco Use Status: Former Tobacco user Tobacco use type: Cigarette Cigarette Packs Per Day: 0.5 Years Smoked: 20 Substance Use Type: Marijuana Advance Directives: No Advance Directives Information Provided: Yes service: No Current occupational status: employed Physical Exam Vital Signs: Vital Signs: Last Vital Signs Temp 98.8 F 08/17/24 23:05 Pulse 73 08/17/24 23:05 Resp 20 08/17/24 23:05 BP 143/58 H 08/17/24 23:05 Pulse Ox 99 08/17/24 23:05 O2 Del Method Room Air 08/17/24 23:05 BMI result Body Mass Index 37.2 Const: Other: Appearance: Alert. Oriented X3. No acute distress. Eyes: Pupils equal, round and reactive to light. ENT: Pharynx normal. Neck: Normal inspection. Neck supple. No lymph nodes noted. No crepitus CVS: Normal heart rate and rhythm. Pulses normal. Normal S1 and S2 Respiratory: No respiratory distress. Breath sounds normal. No Wheezing. No rales Abdomen: Soft and nontender. No rigidity. No distention. Skin: Skin warm and dry. Normal skin color. Normal skin turgor. Extremities: No lower extremity edema. No Lacerations. No Rash Neuro: Oriented X 3. No motor deficit. No sensory deficit. Moving all extremities. No slurred speech. CN 2 through 12 grossly intact Psych: calm, cooperative, normal affect Medications Administered Discontinued Medications Generic Name Dose Route Start Last Admin Trade Name Kenrick PRN Reason Stop Dose Admin Phenazopyridine HCl 100 mg 08/18/24 00:16 08/18/24 00:33 Phenazopyridine Hcl 100 Mg Tablet PO 08/18/24 00:17 100 mg ONCE ONE Administration Trimethoprim/Sulfamethoxazole 1 tab 08/18/24 00:16 08/18/24 00:33 Sulfamethox/Trimeth 800/160 Tablet PO 08/18/24 00:17 1 tab ONCE ONE Administration Medical Decision Making Medical Decision Making MDM Narrative: my interpretation of labs: Patient's urinalysis is positive for UTI. Negative test Lab Data Labs: Lab Results 08/17/24 Range/Units 23:23 Urine Color Dark Yellow Urine Appearance Clear Urine pH 5.5 (5.0-9.0) Ur Specific [place] >= 1.030 H (1.005-1.025) Urine Protein 30 (1+) H (Neg-Trace) mg/dL Urine Glucose (UA) Negative (Negative) mg/dL Urine Ketones Negative (Negative) mg/dL Urine Blood Moderate (2+) H (Negative) Urine Nitrite Positive H (Negative) Ur Leukocyte Esterase Moderate (2+) H (Negative) Urine RBC >20 H (0-2) /HPF Urine WBC >50 H (0-5) /HPF Ur Squamous Epith Cells 6-10 (0-2) /HPF Urine Bacteria 1+ (None Seen) Hyaline Casts 0-2 (0-2) /LPF Urine Test NEGATIVE (NEGATIVE) Discharge Plan Discharge Clinical Impression: UTI (urinary tract infection) Patient Disposition: Home, Self-Care Instructions: Urinary Tract Infection in Women (ED) Additional Instructions: Please follow-up with your primary care physician tomorrow. If you have any worsening or new symptoms, please return to the emergency room or call 911 Prescriptions: New sulfamethoxazole-trimethoprim [Bactrim DS] 800-160 mg tablet 1 tab PO BID Qty: 5 0RF phenazopyridine 100 mg tablet 100 mg PO TID Qty: 5 0RF No Action cyclobenzaprine 5 mg tablet 5 mg PO BID PRN (Reason: muscle spasm) Qty: 20 0RF celebrate MVI PO DAILY Nexplanon subcut Print Language: Nepali
[2024-08-18] MEDS: Sulfamethox/Trimeth 800/160 TABLET 1 TAB PO (00:33)
[2024-08-18] MEDS: Phenazopyridine HCL 100 MG TABLET PO (00:33)
[2024-08-18 00:38] LABS: UPreg QC Valid YES
[2024-08-18 00:40] LABS: Urine Pregnancy NEGATIVE (NEGATIVE)
[2024-08-18 00:47] VITALS: BP 143/58; PULSE 73; RESP 20; TEMP 37.1; O2SAT 99
== END 2024-08-18 00:47 | disposition home or self-care (01) ==
PROVIDERS: Emergency Provider Emergency Medicine
DX: N39.0 Urinary tract infection, site not specified (principal); R30.0 Dysuria
CPT/HCPCS: 81001; 81025; 87086; 87088; 87186; 99283

== ENCOUNTER → 2024-09-30 22:51 | Outpatient (BNV) | payer OTHER, SELFPAY | PROVIDERS: Emergency Provider Emergency Medicine; Visit Provider Radiology Diagnostic Radiology | DX: S09.90XA Unspecified injury of head, initial encounter (principal) | CPT/HCPCS: 70450; 72125 ==

== ENCOUNTER 2024-09-30 23:30 | Emergency (ER) | payer OTHER, MEDICARE, MEDICAID, SELFPAY ==
--- NOTE | ~2024-09-30 | CT_ITS ---
CLINICAL HISTORY: head strike CT head without contrast COMPARISON: None FINDINGS: No acute intracranial hemorrhage, extra-axial fluid collection, mass effect, or midline shift. Ventricular system and basilar cisterns are patent. Garza-white matter differentiation is maintained. No gross orbital abnormality. No suspicious or acute bone lesion. Mastoid air cells and paranasal sinuses are predominantly clear. IMPRESSION: 1. No acute intracranial abnormality. This document has been electronically signed by: Venkatesh Arroyo MD on 10/01/2024 01:29:28
--- NOTE | ~2024-09-30 | CT_ITS ---
CLINICAL HISTORY: head strike CT cervical spine without contrast Comparison: None Findings: Cervical vertebral body heights maintained. No traumatic listhesis, subluxation, or dislocation demonstrated. No acute fracture identified. No acute prevertebral or paraspinous soft tissue finding. Visualized portions of the lung apices are clear. IMPRESSION: 1. No CT evidence of acute traumatic cervical spine injury. This document has been electronically signed by: Venkatesh Arroyo MD on 10/01/2024 01:17:52
[2024-09-30 23:31] VITALS: BP 140/82; PULSE 71; RESP 17; TEMP 36.5; O2SAT 100; BMI 38.1
--- NOTE | 2024-09-30 23:43 | ED.HEATRA ---
HPI - Head Injury General Chief complaint: Head Injury Stated complaint: head stike at work Time Seen by Provider: 09/30/24 23:44 History of Present Illness ED Provider: karuna HPI Narrative: 34 F with head strike at work. Now AGUILAR, dizzy. 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 [employer] [place] dazed head pain and headache and superiorly in some discomfort bilateral paraspinal cervical spine region. Denies numbness tingling weakness but feels nauseous dizzy and off. Generalized bilateral blurred vision since the event no focal vision changes or blindness Related Data Home Medications ?Medication ?Instructions ?Recorded ?Confirmed Nexplanon subcut 09/30/23 09/30/23 celebrate MVI PO DAILY 09/30/23 09/30/23 Previous Rx's ?Medication ?Instructions ?Recorded cyclobenzaprine 5 mg tablet 5 mg PO BID PRN muscle spasm #20 03/02/24 tabs phenazopyridine 100 mg tablet 100 mg PO TID #5 tabs 08/18/24 sulfamethoxazole 800 1 tab PO BID #5 tabs 08/18/24 mg-trimethoprim 160 mg tablet (Bactrim DS) Allergies Allergy/AdvReac Type Severity Reaction Status Date / Time No Known Allergies Allergy Mild NONE Verified 09/30/24 23:36 [facility] Past Medical History Medical History Depression Family history of anesthesia complication Fuchs' corneal dystrophy of both eyes Cigarette smoker Binge-eating disorder, in partial remission, mild Cigarette smoker Pre-op evaluation Surgical History Hx of cornea transplant Family History Family History Mother No problems noted. Father Heart failure Hypertension High cholesterol Heart attack Brother No problems noted. Social History Social History Household Members: Family Household Members Other:: father Housing: House Are you a primary urgent care to a significant other at home: No Do you presently have visiting nurse or other home services: No Alcohol intake: current Alcohol intake frequency: holidays/special occasions only Patient Tobacco Use Status: Former Tobacco user Tobacco use type: Cigarette Cigarette Packs Per Day: 0.5 Years Smoked: 20 Substance Use Type: Marijuana Advance Directives: No Do you have a plan to hurt others: No Plan service: No Current occupational status: employed Physical Exam Vital Signs: Vital Signs: Last Vital Signs Temp 97.4 F 10/01/24 01:51 Pulse 67 10/01/24 01:51 Resp 18 10/01/24 01:51 BP 135/90 H 10/01/24 01:51 Pulse Ox 100 10/01/24 01:51 O2 Del Method Room Air 10/01/24 01:51 BMI result Body Mass Index 38.1 Const: Other: GENERAL: Well appearing. No apparent distress. Alert. HEAD/NECK: Normal to inspection. Neck supple. No cervical lymphadenopathy. EYES: Normal to inspection. Sclera non-icteric. ENMT: External nose normal. RESPIRATORY: Respiratory effort normal. Lungs clear to auscultation bilaterally. CARDIOVASCULAR: Regular rate. Normal rhythm. No murmur. No rubs. GI: Soft, non-tender, non-distended. No rebound or guarding. No masses palpable. No hepatosplenomegaly. SKIN: No jaundice. NEUROLOGICAL: Alert. PSYCHIATRIC: Alert. Appearance appropriate for situation. Attitude cooperative. OTHER: Comprehensive Neuro exam: Face symmetric, tongue midline, strong symmetric eye closure, pupils symmetric and reactive to light, intact sensation to the face throughout, intact strong face deviation and shoulder shrug. Sensation intact to light touch throughout 5 out of 5 strength in bilateral upper extremities, 5 and 5 strength in lower extremities Medications Administered Discontinued Medications Generic Name Dose Route Start Last Admin Trade Name Wesleyq PRN Reason Stop Dose Admin Ondansetron HCl 4 mg 10/01/24 00:20 10/01/24 01:44 Ondansetron Odt 4 Mg Tab.Rapdis TRANSLINGU 10/01/24 00:21 4 mg ONCE ONE Administration Medical Decision Making Medical Decision Making MDM Narrative: I received sign-out from my colleague Dr. Olvera Head CT and cervical spine CT do not show any acute abnormality. Patient's symptoms likely secondary to a concussion. The above-mentioned was discussed with the patient. Patient has stable vitals, and feels well to go home. Independent Interpretation I performed an independent interpretation of an: CT Scan Radiology Impression Discussion of test interpretation with radiology: I have reviewed the radiologist's reading. Radiologist Impression: No acute intracranial hemorrhage, extra-axial fluid collection, mass effect, or midline shift. Ventricular system and basilar cisterns are patent. Garza-white matter differentiation is maintained. No gross orbital abnormality. No suspicious or acute bone lesion. Mastoid air cells and paranasal sinuses are predominantly clear. Cervical vertebral body heights maintained. No traumatic listhesis, subluxation, or dislocation demonstrated. No acute fracture identified. No acute prevertebral or paraspinous soft tissue finding. Visualized portions of the lung apices are clear Discharge Plan Discharge Clinical Impression: Concussion Patient Disposition: Home, Self-Care Instructions: Concussion (ED) Additional Instructions: DISCHARGE DIAGNOSES: Head injury likely concussion HISTORY OF PRESENTATION: ?Head strike. Now with headache dizziness nausea. EMERGENCY DEPARTMENT COURSE,TESTS, TREATMENTS: While in the ED today you had a CT scan and cervical spine. DISCHARGE MEDICATIONS: ?[We have made no changes to your regular medication regimen] FOLLOW-UP: ?Call your primary or general physician soon as possible to discuss your symptoms, your ED visit and to discuss follow up plans INSTRUCTIONS ?& RETURN PRECAUTIONS: If any symptoms change first call your primary physician, if it is after-hours your primary doctors office should have a provider confectionery laboratory manager you can speak with. If the symptoms are severe or very concerning to you then call 911 or return to the ED. [[id number]] Keagan Marie MD Emergency Physician [facility] Prescriptions: No Action sulfamethoxazole-trimethoprim [Bactrim DS] 800-160 mg tablet 1 tab PO BID Qty: 5 0RF phenazopyridine 100 mg tablet 100 mg PO TID Qty: 5 0RF cyclobenzaprine 5 mg tablet 5 mg PO BID PRN (Reason: muscle spasm) Qty: 20 0RF celebrate MVI PO DAILY Nexplanon subcut Stand Alone Forms: Work/School Release Interventions: ED Discharge Assessment Last Done: 10/01/24 01:51 Discharge Date/Time: 10/01/24 01:51 Print Language: Turkmen
[2024-10-01] MEDS: Ondansetron ODT 4 MG TAB.RAPDIS TRANSLINGU (01:44)
[2024-10-01 01:45] VITALS: BP 135/90; PULSE 67; RESP 18; TEMP 36.3; O2SAT 100
[2024-10-01 01:51] VITALS: BP 135/90; PULSE 67; RESP 18; TEMP 36.3; O2SAT 100
== END 2024-10-01 01:51 | disposition home or self-care (01) ==
PROVIDERS: Emergency Provider Emergency Medicine
DX: S09.90XA Unspecified injury of head, initial encounter (principal); W19.XXXA Unspecified fall, initial encounter; Y93.9 Activity, unspecified; Y92.9 Unspecified place or not applicable; Y99.9 Unspecified external cause status; R51.9 Headache, unspecified; R11.0 Nausea
CPT/HCPCS: 70450; 72125; 99283; 99284

== ENCOUNTER 2025-03-28 12:22 | Outpatient (AMB) | payer MEDICARE, MEDICAID, OTHER, SELFPAY ==
--- NOTE | 2025-03-28 12:21 | MHC.OFFVISWM ---
VS Expanded 03/28/25 12:37 Height 5 ft 3 in Weight 220 lb BMI 39.0 Intake Visit Reasons: Phone PO LSG 07/24/22 Allergies No Known Allergies Allergy (Mild, Verified 09/30/24 23:36) NONE Medication List - Last Reconciled 03/28/25 by JENNIFER Fernández No Known Home Meds HPI Comments Details: 32-year-old female presents to the office for 2 year, 8 month follow-up, s/p sleeve gastrectomy on 07/24/[address] Tierney. [employer] weight (Feb 2022) 309 pounds Preop weight 256 pounds Current weight 220 pounds and a BMI of 33.4. She reports her hunger has continued to increase. She does not like using the beatris. She does not like using forkfuls. She wants to use a food scale. meal plan: overnight oats protein bar at noon cottage cheese or baked chicken/steak ravenous at end of day- eating pretty much anything I can find , carb free wrap Noon: Built bar 3pm: Built bar 7pm: Meal 3 oz protein and 3 oz veggies 10 pm RYSE protein shake 1 scoop in 8 oz unsweetened almond milk or 26g ready to drink Fairlife shake Drinking 16 oz water daily Exercise: what's the point of working out when I'm eating like a f-in' horse Taking celebrate MVI and graham + D PFSH Medical History Depression Family history of anesthesia complication Fuchs' corneal dystrophy of both eyes Cigarette smoker Binge-eating disorder, in partial remission, mild Cigarette smoker Pre-op evaluation Surgical History Hx of cornea transplant Family History Mother No problems noted. Father Heart failure Hypertension High cholesterol Heart attack Brother No problems noted. Social History Household Members: Family Household Members Other:: father Housing: House Are you a primary child daycare worker to a significant other at home: No Do you presently have visiting nurse or other home services: No Alcohol intake: current Alcohol intake frequency: holidays/special occasions only Patient Tobacco Use Status: Former Tobacco user Tobacco use type: Cigarette Cigarette Packs Per Day: 0.5 Years Smoked: 20 Substance Use Type: Marijuana service: No Current occupational status: employed Telehealth Telehealth Telehealth Platform: Telephone Location of provider rendering services: practice address Location of patient: address on file Patient Identification confirmed using: Name, : Yes Telehealth method: voice only Patient verbally consented to treatment: Yes Patient verbally consented to billing insurance company: Yes Patient informed of any privacy concerns related to visit: Yes Minutes spent on Phone/Video with Pt.: 20 Assessment & Plan Assessment & Plan (1) Status post sleeve gastrectomy: Code(s): Z90.3 - Acquired absence of stomach [part of] Category: Surgical (2) Obesity with body mass index (BMI) of 30.0 to 39.9: Code(s): E66.9 - Obesity, unspecified Category: Medical Plan Pt is very frustrated by her current situation with what feels like uncontrollable hunger and difficulty following the recommended meal plan. I recommended phentermine trial. She is also potentially interested in GLP1 medications if phentermine is ineffective. She will monitor her BP daily and text me measurements. Labs ordered. RTC 3mo TV. Orders: Orders TSH reflex Free T4 Today Z90.3 - Acquired absence of stomach [part of] Ferritin Today Z90.3 - Acquired absence of stomach [part of] Vitamin D 25-OH Total Today Z90.3 - Acquired absence of stomach [part of] Vitamin A Today Z90.3 - Acquired absence of stomach [part of] Comprehensive Met. Panel Today Z90.3 - Acquired absence of stomach [part of] Vitamin B12 and Folate Today Z90.3 - Acquired absence of stomach [part of] Zinc Today Z90.3 - Acquired absence of stomach [part of] Hemoglobin A1c Today Z90.3 - Acquired absence of stomach [part of] Vitamin B1 Today Z90.3 - Acquired absence of stomach [part of] C Reactive Protein Today Z90.3 - Acquired absence of stomach [part of] IRON PROFILE Today Z90.3 - Acquired absence of stomach [part of] Lipid Panel Today Z90.3 - Acquired absence of stomach [part of] Complete Blood Count Auto Diff Today Z90.3 - Acquired absence of stomach [part of] Insulin Today Z90.3 - Acquired absence of stomach [part of] Medications: New phentermine must administer 2 hours after breakfast 15 mg PO DAILY 30 caps 0RF
[2025-03-28 12:37] VITALS: BMI 39.0
== END 2025-03-28 13:00 | disposition home or self-care (01) ==
LOC: HO.HBS 12:22
PROVIDERS: Visit Provider Physician Assistant Surgical
DX: E66.812 Obesity, class 2 (principal); Z68.39 Body mass index [BMI] 39.0-39.9, adult; Z90.3 Acquired absence of stomach [part of]; Z98.84 Bariatric surgery status
CPT/HCPCS: 99214; G2211